=== PATIENT | male | born 1965 | race Two or more races ===

== ENCOUNTER 2020-09-01 08:34 | Outpatient (REF) | payer OTHER, SELFPAY | END 2020-09-01 08:35 | disposition home or self-care (01) | LOC: HO.LAB 08:34 | PROVIDERS: PCP Family Medicine; Visit Provider Internal Medicine | DX: Z20.828 Contact with and (suspected) exposure to other viral communicable diseases (principal) | CPT/HCPCS: C9803; U0003 ==

== ENCOUNTER 2022-06-26 13:38 | Outpatient (REF) | payer SELFPAY ==
[2022-06-26 14:11] LABS: COVID-19 Test Positive (Negative); IDNOW Serial# 16C4AD1C
== END 2022-06-26 13:39 | disposition home or self-care (01) ==
LOC: HO.LAB 13:38
PROVIDERS: Visit Provider Internal Medicine
DX: Z20.822 Contact with and (suspected) exposure to COVID-19 (principal)
CPT/HCPCS: 87635; C9803

== ENCOUNTER 2022-11-28 14:09 | Outpatient (REF) | payer OTHER, SELFPAY ==
--- NOTE | ~2022-11-28 | XR_ITS ---
EXAMINATION: XR SHOULDER, RIGHT CLINICAL INFORMATION: Right shoulder pain, acute COMPARISON: None TECHNIQUE: AP external rotation, Grashey, scapular Y, and axillary views of the right shoulder. FINDINGS: Mild glenohumeral osteoarthritis with small marginal osteophytes and articular cortical irregularity. Acromioclavicular joint appears relatively well-preserved. No fracture or malalignment. Bone mineralization is normal. XR/XR shoulder RT min 2V IMPRESSION: Mild glenohumeral osteoarthritis. No acute osseous findings
== END 2022-11-28 14:10 | disposition home or self-care (01) ==
LOC: HO.XRAY 14:09
PROVIDERS: Absent Provider Internal Medicine; PCP Internal Medicine; Visit Provider Registered Nurse
DX: M25.511 Pain in right shoulder (principal)
CPT/HCPCS: 73030

== ENCOUNTER 2023-03-03 05:21 | Emergency (ER) | payer OTHER, SELFPAY ==
--- NOTE | 2023-03-03 | ECG_ITS ---
Test Reason : CHEST PAIN Blood Pressure : / mmHG Vent. Rate : 077 BPM Atrial Rate : 077 BPM P-R Int : 140 ms QRS Dur : 096 ms QT Int : 400 ms P-R-T Axes : 074 037 000 degrees QTc Int : 452 ms Normal sinus rhythm Hyperacute T waves in precordial leads, ST & T wave abnormality, consider inferior ischemia Abnormal ECG No previous ECGs available Referred By: Generic ED Physician Electronically Signed By:Ankit Yousif
[2023-03-03 05:26] VITALS: BP 126/82; PULSE 82; O2SAT 98
[2023-03-03 05:31] VITALS: BP 115/73; PULSE 77; RESP 19; TEMP 36.6; O2SAT 99; BMI 34.2
--- NOTE | 2023-03-03 05:41 | ECG_ITS ---
Test Reason : CHEST PAIN Blood Pressure : / mmHG Vent. Rate : 084 BPM Atrial Rate : 084 BPM P-R Int : 146 ms QRS Dur : 098 ms QT Int : 394 ms P-R-T Axes : 070 044 010 degrees QTc Int : 465 ms Normal sinus rhythm Hyperacute T waves in anterior leads with lateral and inferior ST depressions - suspect evolving STEMI Abnormal ECG When compared with ECG of 03-MAR-2023 05:24, Lateral ST depressions. Referred By: Jessenia Melo Electronically Signed By:Ankit Yousif
[2023-03-03 05:42] LABS: Hemoglobin 14.8 g/dl (14.0-18.0); Mean Corpuscular HGB Conc 33.6 g/dl (31.0-36.0); Mean Corpuscular Volume 86.1 fL (80.0-98.0); Mean Platelet Volume 9.7 fL (9.4-12.4); Platelet Count 231 X10*3/uL (160-400); Red Blood Count 5.11 X10*6/uL (4.60-5.80); Red Cell Distribution Width 12.6 % (11.0-16.0); White Blood Count 8.6 X10*3/uL (4.8-10.8)
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
--- OUTSIDE RECORDS SUMMARY | 2023-03-03 05:42 | XMS_ITS | Continuity of Care Document ---
Author Name Unknown Organization [facility] Address [address] [place] [address]- Care Team Providers Care Communication Signals Intelligence Name Role Phone Not on Staff, PCP Primary Care Physician Unavail able [place] [facility] [place] - 05/19/22 [facility] [address] [place] [address]- Attending Physician: Lenny Rodriguez DO Referring Physician: Not on Staff, Referring MD Allergies, Adverse Reactions, Alerts No Known Allergies Medications terbinafine 1% topical cream 1 application, Topically, 2 times a day, 1-4 weeks as needed, # 30 Gm, 0 Refills, Acute 06/09/22 23:00:00 EDT, 05/12/22 14:16:00 EDT, Cream, [id number], Partial fill upon patient request if the prescription is for a schedule II opioid drug., 1... Start Date: 05/12/22 Stop Date: 06/09/22 Status: Ordered Vital Signs Most recent to oldest [Reference Range]: 1 Oxygen Saturation [94-100 %] 100 % (05/12/22 1:32 PM) Pulse Rate [55-90 bpm] 71 bpm (05/12/22 1:32 PM) Blood Pressure [90-138/55-84 mm Hg] 139/ 69mm Hg *H* (05/12/22 1:32 PM) Temperature [96.8-100.4 DegF] 98.0 DegF (05/12/22 1:32 PM) Mode of Delivery (Oxygen) Room air (05/12/22 1:32 PM) Blood pressure sites Arm, right (05/12/22 1:32 PM) Temperature Route Temporal (05/12/22 1:32 PM)
--- OUTSIDE RECORDS SUMMARY | 2023-03-03 05:42 | XMS_ITS | Continuity of Care Document ---
Author Name Unknown Organization [facility] Address [address] [place] [address]- Care Team Providers Care Media Services Director Name Role Phone Not on Staff, PCP Primary Care Physician Unavail able Encounter [facility] [place] Date(s): 05/12/22 - 06/11/22 [facility] [address] [place] [address]- Attending Physician: Admtr, Ar8 Admitting Physician: Admtr, Ar8 Referring Physician: Admtr, Ar8 Allergies, Adverse Reactions, Alerts No Known Allergies Care Team Personnel Name: Not on Staff, PCP
[2023-03-03 05:45] VITALS: BP 119/72; PULSE 76; RESP 18; O2SAT 98
[2023-03-03] MEDS: Heparin Sodium,Porcine 5,000 UNIT/ML VIAL 5000 UNIT IVPUSH (05:46)
[2023-03-03] MEDS: Atorvastatin Calcium 80 MG TABLET PO (05:46)
[2023-03-03] MEDS: Ticagrelor 90 MG TABLET 180 MG PO (05:46)
[2023-03-03] MEDS: Morphine Sulfate 2 MG/ML CARTRIDGE IVPUSH (05:49)
[2023-03-03 05:57] LABS: Alanine Aminotransferase 23 U/L (0-40); Alkaline Phosphatase 64 U/L (39-117); Anion Gap 16 (12-20); Aspartate Amino Transferase 22 U/L (5-37); Bilirubin Total 0.5 mg/dL (0.0-1.0); Blood Urea Nitrogen 25 mg/dL (9-16); Calcium 8.9 mg/dL (8.4-10.2); Carbon Dioxide 23 mmol/L (22-29); Chloride 104 mmol/L (96-108); Estimated Glomerular Filt Rate 53; Glucose Random 192 mg/dL (60-115); Potassium 3.7 mmol/L (3.3-5.1); Sodium 139 mmol/L (135-145); Total Protein 6.7 g/dL (6.5-8.0)
--- NOTE | 2023-03-03 05:57 | MHC.EDTECH ---
@[phone] Stemi -Line called per ,awaiting a call back. @[phone] [facility] called for a Stemi-Standby per @2031 received a call back from the [facility]emi[facility],speaking with . @[phone] accepted patient to [facility]'s Digital Controls Technical Officer. @5711 [facility] arrived to transfer patient to Digital Controls Technical Officer at [facility].
--- NOTE | 2023-03-03 06:00 | PC.NURSE ---
Report to [facility] choi. Pt to [facility] phlebotomist medical lab assistant for further care.
--- NOTE | 2023-03-03 06:29 | PC.NURSE ---
Report to Gail DOUGLAS in organic lab worker.
== END 2023-03-03 06:02 | disposition short-term general hospital (02) ==
PROVIDERS: Emergency Provider Emergency Medicine Emergency Medical Services
DX: I21.3 ST elevation (STEMI) myocardial infarction of unspecified site (principal); R06.02 Shortness of breath; E11.9 Type 2 diabetes mellitus without complications; E78.5 Hyperlipidemia, unspecified
CPT/HCPCS: 36415; 80053; 84484; 85027; 93005; 96374; 96375; 99285; J1643; J2270

== ENCOUNTER → 2023-03-06 12:43 | Outpatient (BNVA) | payer OTHER, SELFPAY | PROVIDERS: PCP Internal Medicine; Referring Provider Internal Medicine; Visit Provider Nurse Practitioner Family | DX: I21.3 ST elevation (STEMI) myocardial infarction of unspecified site (principal); I25.5 Ischemic cardiomyopathy; Z98.890 Other specified postprocedural states | CPT/HCPCS: 99212 ==

== ENCOUNTER → 2023-04-10 12:44 | Outpatient (REF) | payer OTHER, SELFPAY ==
--- NOTE | 2023-04-10 12:47 | CA_ITS ---
Transthoracic Echocardiogram Patient (Last, First, Middle): Rodolfo Humphrey, Gender: Male Date of : 1965 Age: 57 Procedure Date: 04/10/2023 Procedure Type: Transthoracic Echocardiogram Location: OP Height: 175.26 cm Weight: 99.79 kg BSA: 2.15 m2 Heart Rate: 64 bpm BP: 110 / 78 mmHg Laundry Machine Mechanic: SB Referring MD: Angelika Renteria LIME SLUDGE KILN OPERATOR-C Symptoms: I21.3 - ST elevation (STEMI) myocardial infarction of unspecified site Study Quality: Adequate ECG Rhythm: Sinus Conclusions: - The left ventricular systolic function is low normal. The visually estimated ejection fraction is between 50-55%. - The basal anteroseptal and mid anteroseptal segments are hypokinetic. Findings Left Ventricle Normal left ventricular cavity size. The left ventricular systolic function is low normal. The visually estimated ejection fraction is between 50-55%. LV peak GLS -13.6%. Wall Motion Rest Echo Findings The basal anteroseptal and mid anteroseptal segments are hypokinetic. Prior Study Comparison Changes noted compared to prior study. (compared to [facility] [place]04/[place]23, improved LVEF, wall motion abnormalities). Measurements 2D Linear Measurements IVSd: 1.09 0.6-0.9/0.6-1.0 cm LVIDd: 5.08 3.9-5.3/4.2-5.9 cm LVIDd Index: 2.36 2.4-3.2/2.2-3.1 cm/m2 LVIDs: 3.65 2.0-3.6 cm LVPWd: 0.73 0.7-1.1 cm LV Mass: 205.16 67-162/88-224 g LV Mass Index: 95.42 43-95/49-115 g/m2 2D Systolic Function EF 4C: 60.10 >55% EF 2C: 54.80 >55% EF BiP: 58.00 >55% Updated in Other Vendor System with Status of Final Onesimo Melvin MD electronically signed on 04/11/2023 10:04:26 AM with status of Final
== END ==
LOC: HO.CARD 12:44
PROVIDERS: PCP Internal Medicine; Visit Provider Nurse Practitioner Family
DX: I21.3 ST elevation (STEMI) myocardial infarction of unspecified site (principal); I25.5 Ischemic cardiomyopathy
CPT/HCPCS: 93308; 93356

== ENCOUNTER → 2023-04-18 11:04 | Outpatient (BNVA) | payer OTHER, SELFPAY | PROVIDERS: Visit Provider Internal Medicine Cardiovascular Disease | DX: I25.5 Ischemic cardiomyopathy (principal); I20.8 Other forms of angina pectoris | CPT/HCPCS: 99212 ==

== ENCOUNTER 2023-05-07 08:00 | Outpatient (REF) | payer OTHER, SELFPAY ==
[2023-05-07 08:57] LABS: Alanine Aminotransferase 39 U/L (0-40); Alkaline Phosphatase 77 U/L (39-117); Anion Gap 10 (12-20); Aspartate Amino Transferase 27 U/L (5-37); Bilirubin Total 0.5 mg/dL (0.0-1.0); Blood Urea Nitrogen 20 mg/dL (9-16); Carbon Dioxide 27 mmol/L (22-29); Chloride 109 mmol/L (96-108); Cholesterol 88 mg/dL; Estimated Glomerular Filt Rate > 60; Glucose Random 122 mg/dL (60-115); HDL Cholesterol 30 mg/dL; LDL Cholesterol Calculated 49 mg/dl; Potassium 4.6 mmol/L (3.3-5.1); Sodium 141 mmol/L (135-145); Triglycerides 49 mg/dL
== END 2023-05-07 08:01 | disposition home or self-care (01) ==
LOC: HO.LAB 08:00
PROVIDERS: PCP Internal Medicine; Visit Provider Nurse Practitioner Primary Care
DX: I25.10 Atherosclerotic heart disease of native coronary artery without angina pectoris (principal)
CPT/HCPCS: 36415; 80053; 80061

== ENCOUNTER 2023-06-21 15:42 | Outpatient (REF) | payer OTHER, SELFPAY ==
--- NOTE | ~2023-06-21 | XR_ITS ---
EXAMINATION: XR LUMBOSACRAL SPINE CLINICAL INFORMATION: Low back pain and sciatica COMPARISON: None available. TECHNIQUE: Three views of the lumbosacral spine. FINDINGS: There is mild facet degenerative change L5-S1. Mild anterior spurring noted in the lower thoracic spine and upper lumbar spine. There is no fracture or destructive lesion. Sclerosis overlies the inferior left SI joint. There is minor atherosclerotic calcification in the distal abdominal aorta. XR/XR lumbar spine 2-3V IMPRESSION: Degenerative changes noted. No fracture.
== END 2023-06-21 15:43 | disposition home or self-care (01) ==
LOC: HO.HHCX 15:42
PROVIDERS: Visit Provider Family Medicine
DX: M54.42 Lumbago with sciatica, left side (principal); M54.41 Lumbago with sciatica, right side
CPT/HCPCS: 72100

== ENCOUNTER 2023-09-14 14:18 | Outpatient (AMB) | payer OTHER, SELFPAY ==
[2023-09-14 14:20] VITALS: BP 130/70; PULSE 98; BMI 33.2
--- NOTE | 2023-09-14 14:20 | MHC.OFFVIS ---
Intake Vital Signs 09/14/23 14:20 Height 5 ft 9 in Weight 224 lb 13.944 oz BMI 33.2 BP 130/70 Blood Pressure Location Lt brachial Position Sitting Pulse 98 Pulse Source Pulse Oximeter Intake Visit Reasons: 4 month f/u Intake Note: 4 month f/u patient feels fine. Explosive Ordnance Handler Required: Yes Explosive Ordnance Handler Name: Said flavio/tyler Accompanied by: Self / Same As Patient Allergies No Known Allergies Allergy (Verified 09/14/23 14:22) Medication List - Last Reconciled 09/14/23 by Nivia Bonilla NP aspirin (Adult Low Dose Aspirin) 81 mg PO DAILY atorvastatin 80 mg PO DAILY carvedilol 3.125 mg PO BID gabapentin 1 tab AM, 2 tab PM lisinopril 5 mg PO DAILY metformin ER 500 mg PO DAILY nitroglycerin mg sublingual ticagrelor (Brilinta) 90 mg PO BID HPI HPI Comments History of Present Illness Details 57-year-old male presents for a follow-up. He reports he has been doing well and tolerating medications well. He denies chest pain, shortness of breath, hematuria, or hematochezia. He reports he does get bruising with the blood thinner. He tolerates working as a [employer] employee without difficulties. [facility] Surgical History History of cardiac cath Family History Mother No problems noted. Father No problems noted. Social History Alcohol intake: never Patient Tobacco Use Status: Never used Tobacco Review of Systems Const Denies chills, Denies fatigue, Denies fever(s), Denies frequent falls, Denies weakness, Denies weight gain and Denies weight loss ENT Denies dizziness Card Denies chest pain, Denies leg edema, Denies lightheadedness, Denies palpitations, Denies dyspnea and Denies dyspnea on exertion Resp Denies cough, Denies dyspnea and Denies dyspnea on exertion GI Denies hematochezia Musc Denies abnormal gait, Denies muscle weakness, Denies numbness, Denies radiating pain into limb and Denies tingling Neuro Denies abnormal gait, Denies dizziness, Denies frequent falls, Denies numbness, Denies tingling and Denies weakness Endo Denies fatigue and Denies palpitations Physical Exam Vital Signs: Last Vital Signs Pulse 98 09/14/23 14:20 BP 130/70 09/14/23 14:20 BMI result Body Mass Index 33.2 Const General: healthy appearing and no acute distress Orientation/consciousness: patient oriented x3 HEENT Head: Yes normal to inspection Eyes General: appearance normal, both eyes and all related structures Neck Neck: Yes normal visual inspection Chest Chest palpation & inspection: normal inspection of the chest Resp Effort & Inspection: normal respiratory effort Auscultation: clear to auscultation bilaterally Cardio Jugular venous distension: no JVD Palpation: normal PMI Rate: regular rate Rhythm: regular rhythm Heart sounds: S1 normal heart sound present, S2 normal heart sound present, no click, no gallops, no murmurs and no rubs GI Inspection: Yes normal to inspection Palpation (GI): Soft to palpation Skin General skin exam: no rashes or lesions noted Neuro General: patient oriented x3 Extrem General: Yes normal to inspection Psych Appearance: grossly normal Assessment & Plan Assessment & Plan (1) History of cardiac cath: Comment: 03/03/2023 proximal LAD 95% stenosis, DELL placed, culprit lesion, 1st OM 30% stenosis, RCA minimal luminal irregularities Code(s): Z98.890 - Other specified postprocedural states Plan Discussed in detail the importance of continuing medications. Report any new symptoms. Will have him return to see Dr. Yousif in 3-4 months. Sooner if needed. Coding Level of Care Code Est Pt Level 3 (18528) Diagnoses History of cardiac cath Z98.890
== END 2023-09-14 14:47 | disposition home or self-care (01) ==
PROVIDERS: PCP Internal Medicine; Visit Provider Nurse Practitioner
DX: Z98.890 Other specified postprocedural states (principal)
CPT/HCPCS: 99213

== ENCOUNTER → 2023-09-14 14:18 | Outpatient (BNVA) | payer OTHER, SELFPAY | PROVIDERS: PCP Internal Medicine; Visit Provider Nurse Practitioner | DX: Z98.890 Other specified postprocedural states (principal) | CPT/HCPCS: 99212 ==

== ENCOUNTER 2024-04-26 09:48 | Outpatient (REF) | payer OTHER, SELFPAY ==
[2024-04-26 10:02] LABS: MANUAL DIFF FLAG NO
[2024-04-26 12:02] LABS: Basophils Absolute Auto 0.1 X10*3/uL (0.0-0.2); Basophils Percent Auto 0.9 % (0-2); Eosinophils Absolute Auto 0.1 X10*3/uL (0.0-0.4); Eosinophils Percent Auto 2.1 % (0-4); Hematocrit 46.1 % (42.0-52.0); Hemoglobin 15.1 g/dl (14.0-18.0); Imm Gran Abs Auto 0.02 X10*3/uL (0.00-0.03); Imm Gran Pct Auto 0.3 % (0.0-0.4); Lymphocytes Absolute Auto 1.4 X10*3/uL (1.2-4.9); Lymphocytes Percent Auto 23.7 % (20-40); Mean Corpuscular HGB Conc 32.8 g/dl (31.0-36.0); Mean Corpuscular Hemoglobin 29.4 pg (27.0-33.0); Mean Corpuscular Volume 89.9 fL (80.0-98.0); Mean Platelet Volume 10.9 fL (9.4-12.4); Monocytes Absolute Auto 0.6 X10*3/uL (0.1-1.2); Monocytes Percent Auto 10.7 % (2-11); Neutrophils Absolute Auto 3.6 x10*3/uL (2.0-8.3); Neutrophils Percent Auto 62.3 % (45-73); Platelet Count 207 X10*3/uL (160-400); Red Blood Count 5.13 X10*6/uL (4.60-5.80); Red Cell Distribution Width 12.9 % (11.0-16.0); White Blood Count 5.8 X10*3/uL (4.8-10.8)
[2024-04-26 12:43] LABS: Alanine Aminotransferase 24 U/L (0-40); Alkaline Phosphatase 65 U/L (39-117); Anion Gap 12 (12-20); Aspartate Amino Transferase 24 U/L (5-37); Bilirubin Total 0.6 mg/dL (0.0-1.0); Blood Urea Nitrogen 18 mg/dL (9-16); Calcium 8.9 mg/dL (8.4-10.2); Carbon Dioxide 29 mmol/L (22-29); Chloride 105 mmol/L (96-108); Cholesterol 98 mg/dL (<200); Estimated Glomerular Filt Rate > 60; Glucose Random 101 mg/dL (60-115); HDL Cholesterol 34 mg/dL (>40); LDL Cholesterol Calculated 56 mg/dL (<100); Potassium 4.6 mmol/L (3.3-5.1); Sodium 141 mmol/L (135-145); Total Protein 6.9 g/dL (6.5-8.0); Triglycerides 42 mg/dL (<150)
[2024-04-26 13:08] LABS: Creatinine Urine 110.97 mg/dL; Microalbumin Urine < 5.0 mg/L
[2024-04-26 13:12] LABS: Folate 11.2 ng/mL (> or = 4.0); Vitamin B12 935 pg/mL (200-900)
[2024-04-28 18:17] LABS: RPR Rapid Plasma Reagin NON-REACTIVE (NON-REACTIVE)
== END 2024-04-26 09:49 | disposition home or self-care (01) ==
LOC: HO.LAB 09:48
PROVIDERS: Visit Provider Family Medicine
DX: R20.0 Anesthesia of skin (principal); E11.9 Type 2 diabetes mellitus without complications
CPT/HCPCS: 36415; 80053; 80061; 82043; 82570; 82607; 82746; 84443; 85025; 86592

== ENCOUNTER 2024-08-06 13:17 | Outpatient (REF) | payer OTHER, SELFPAY ==
--- NOTE | 2024-08-06 13:21 | EMG_ITS ---
Chief complaint: 2 months of burning sensation both legs, ankle pain, left worse than right; history of diabetes. Reason for referral: Evaluate for neuropathy Referred by: Lucille Boss NP Procedure done: Bilateral lower extremity NCS/EMG Precautions and/or limitations: None The limb temperature was monitored continuously and remained between 32-36 degrees C during the performance of the NCS. Nerve Conduction Studies Anti Sensory Summary Table ?Stim Site NR Onset (ms) Norm Onset (ms) Peak (ms) Norm Peak (ms) O-P Amp (?V) Norm O-P Amp Site1 Site2 Delta-0 (ms) Dist (cm) Kana (m/s) Norm Kana (m/s) Left Sural Anti Sensory (Lat Mall) Calf ? 2.4 3.3 <4.0 11.4 >5.0 Calf Lat Mall 2.4 14.0 58 Right Sural Anti Sensory (Lat Mall) Calf ? 2.3 3.2 <4.0 3.9 >5.0 Calf Lat Mall 2.3 14.0 61 Motor Summary Table ?Stim Site NR Onset (ms) Norm Onset (ms) O-P Amp (mV) Norm O-P Amp iAmp (mV) Amp (1st) (%) Site1 Site2 Delta-0 (ms) Dist (cm) Kana (m/s) Norm Kana (m/s) Right Peroneal Motor (Ext Dig Brev) Ankle ? 4.6 <4.0 3.9 >2.5 4.9 100.0 Ankle Ext Dig Brev 4.6 0.0 B Fib ? 12.9 3.8 4.5 97.4 B Fib Ankle 8.3 32.5 39 >40 Poplt ? 13.9 4.4 5.2 112.8 Poplt B Fib 1.0 6.0 60 >40 Left Tibial Motor (Abd Nash Brev) Ankle ? 4.1 <5 4.2 >2.5 6.1 100.0 Ankle Abd Nash Brev 4.1 0.0 Knee ? 12.7 2.7 2.8 64.3 Knee Ankle 8.6 39.0 45 >40 Right Tibial Motor (Abd Nash Brev) Ankle ? 4.1 <5 9.9 >2.5 12.4 100.0 Ankle Abd Nsah Brev 4.1 0.0 Knee ? 13.5 6.3 7.5 63.6 Knee Ankle 9.4 42.0 45 >40 EMG ?Side Muscle Nerve Root Ins Act Fibs Psw Amp Dur Poly Recrt Int Pat Comment Right AbdHallucis MedPlantar S1-2 Nml Nml Nml Nml Nml 0 Nml Complete Right AntTibialis Dp Br Peron L4-5 Nml Nml Nml Nml Nml 0 Nml Complete Right PostTibialis Tibial L5, S1 Nml Nml Nml Nml Nml 0 Nml Complete Right MedGastroc Tibial S1-2 Nml Nml Nml Nml Nml 0 Nml Complete Right VastusMed Femoral L2-4 Nml Nml Nml Nml Nml 0 Nml Complete Left AbdHallucis MedPlantar S1-2 Nml Nml Nml Nml Nml 0 Nml Complete Left AntTibialis Dp Br Peron L4-5 Nml Nml Nml Nml Nml 0 Nml Complete Left PostTibialis Tibial L5, S1 Nml Nml Nml Nml Nml 0 Nml Complete Left MedGastroc Tibial S1-2 Nml Nml Nml Nml Nml 0 Nml Complete Left VastusMed Femoral L2-4 Nml Nml Nml Nml Nml 0 Nml Complete Paraspinal EMG ?Side Muscle Nerve Root Ins Act Fibs Psw Comment Right Lumbar Upper Rami Nml Nml Nml Right Lumbar Mid Rami Nml Nml Nml Right Lumbar Lower Rami Nml Nml Nml Left Lumbar Upper Rami Nml Nml Nml Left Lumbar Mid Rami Nml Nml Nml Left Lumbar Lower Rami Nml Nml Nml FINDINGS: Right peroneal nerve showed prolonged distal latency, normal amplitude and slow conduction velocity distally. Left tibial nerve within normal, but question temporal dispersion? Right sural nerve showed normal peak latencies but small amplitude. All other nerves tested were within normal. Concentric needle EMG was performed in selected muscles of the bilateral lower extremity and lumbar paraspinals. Study did not reveal signs of electric abnormalities as shown in the table above. IMPRESSION: 1. This is an abnormal study. 2. There is electrodiagnostic findings suggestive of beginning peripheral neuropathy. 3. There is no electrodiagnostic evidence for lumbosacral plexopathy or lumbar radiculopathy. CLINICAL COMMENT: Possible beginning peripheral neuropathy. Please refer back for repeat NCS/EMG in 6 months to confirm/clarify. Thank you for your kind referral. Shelley Baez MD, ABILIO Board Certified, [place] Board of Physical Medicine and Rehabilitation (ABPMR) Board Certified, [place] Board of Electrodiagnostic Medicine (ABEM) CODIN [id number] x 2 MTDD
== END 2024-08-06 13:18 | disposition home or self-care (01) ==
LOC: HO.NEURO 13:17
PROVIDERS: PCP Internal Medicine; Visit Provider Nurse Practitioner Primary Care
DX: R20.2 Paresthesia of skin (principal)
CPT/HCPCS: 95886; 95909

== ENCOUNTER → 2024-08-06 13:21 | Outpatient (BNV) | payer OTHER, SELFPAY | PROVIDERS: PCP Internal Medicine; Visit Provider Physical Medicine & Rehabilitation | DX: E11.42 Type 2 diabetes mellitus with diabetic polyneuropathy (principal) | CPT/HCPCS: 95886; 95909 ==

== ENCOUNTER 2024-12-08 09:49 | Outpatient (AMB) | payer OTHER, SELFPAY ==
--- NOTE | 2024-12-08 09:52 | A.OFFVIS_ITS ---
Vital Signs 12/08/24 10:00 Height 5 ft 8 in Weight 256 lb BMI 38.9 BP 129/62 Blood Pressure Location Rt brachial Position Sitting Pulse 75 Intake Visit Reasons: umbilical hernia Intake Note: Patient referred by Lucille BOWEN for Umbilical hernia. Present for 2M. Patient c/o: pain when pressed on. Side Laster Staple Required: No Accompanied by: Self / Same As Patient Allergies No Known Allergies Allergy (Verified 12/08/24 09:58) HPI Comments Details: Patient presents with a several month history of the symptomatic enlarging umbilical hernia. He would like to have this repaired. He otherwise tolerating a diet. He has regular bowel habits. 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 Chart was reviewed and patient evaluated cardiac history in the past. Status post cardiac catheterization in the past. [facility] Surgical History History of cardiac cath Family History Mother No problems noted. Father No problems noted. Social History Alcohol intake: never Patient Tobacco Use Status: Never used Tobacco Physical Exam Vital Signs: Last Vital Signs Pulse 75 12/08/24 10:00 BP 129/62 12/08/24 10:00 BMI result Body Mass Index 38.9 Chest Other: Chest breath sounds bilaterally, HS 1 in 2 GI Other: Patient was examined both supine and standing with Valsalva. Bilateral groin exam negative. Genitalia within normal limits. Abdomen corpulent, soft. Patient was a roughly 3 cm irreducible umbilical hernia Assessment & Plan Assessment & Plan (1) Incarcerated umbilical hernia: Code(s): K42.0 - Umbilical hernia with obstruction, without gangrene Category: Surgical Plan Risks, benefits, alternatives of open umbilical hernia repair with mesh were reviewed with the patient and included but not limited to bleeding, infection, recurrence, numbness, pain, scarring, bowel injury and the patient wished to proceed. All questions answered. Arrangements were made for this on a day which is convenient for him. Patient will also need to have his Brilinta addressed prior to surgery. Coding Level of Care Code New Pt Level 5 (70511) Diagnoses Incarcerated umbilical hernia K42.0
[2024-12-08 10:00] VITALS: BP 129/62; PULSE 75; BMI 38.9
--- OUTSIDE RECORDS SUMMARY | 2024-12-08 10:45 | XMS_ITS | Encounter Summary ---
Author Organization [employer] Address [address] [facility] [address] [place] [address] Care Team Providers Care Credentialing Analyst Name Role Phone Lucille Boss Primary Care Provider [phone] Sae Renterian Unavailable Reason for Visit * Reason Onset Date Comments Results 12/11/2022 Encounter Details Date Type Department Care Team ([facility] Contact Info) Description 12/11/2022 Telephone [facility] [address] [place] [address] Lucille Boss ANP [address] [place] [address] Results Social History Tobacco Use Types Packs/Day Years Used Date Smoking Tobacco: Never Assessed Depression Answer Date Recorded Patient Health Questionnaire-2 Score 0 11/28/2022 Sex and Gender Information Value Date Recorded Sex Assigned at Male 08/14/2022 10:15 AM EDT Legal Sex Male 10:15 AM EDT Gender Identity Choose not to disclose 10:15 AM EDT Sexual Orientation Choose not to disclose 2021 10:15 AM EDT COVID-19 Exposure Response Date Recorded In the last 10 days, have yo u been in contact with someone who was confirmed or suspected to have Coronavirus/COVID-19? No / Unsure 11/28/2022 12:56 PM EST documented as of this encounter Miscellaneous Notes * Telephone Encounter - Antonette Regan RN - 12/11/2022 3:45 PM EST XR ordered 11/28 by OTTONIEL Hobbs. No results yet available. * Telephone Encounter - Shirin Henry - 12/11/2022 2:55 PM EST Tc from pt requesting results from X-ray that were done for Acute pain of right shoulder. Please contact pt at [phone] documented in this encounter Plan of Treatment Not on file documented as of this encounter Visit Diagnoses Not on filedocumented in this encounter Care Teams Credentialing Analyst Relationship Specialty Start Date End Date Lucille Boss ANP [address] [place] [id number] PCP - General Family Medicine 11/27/22 Angelika Renteria [address] [place] [address] [address] [place] [address] Cardiology 10/07/24 ao Gastroenterology 09/29/24 10/06/24 documented as of this encounter
--- OUTSIDE RECORDS SUMMARY | 2024-12-08 10:45 | XMS_ITS | Encounter Summary ---
Author Organization [employer] Address [address] 7[address] [place] [address] Care Team Providers Care Farm Butcher Name Role Phone Lucille Boss Primary Care Provider [phone] Angelika Renteria Unavailable Reason for Visit * Reason Comments Med Refill Encounter Details Date Type Department Care Team ([facility] Contact Info) Description 07/01/2023 Refill [facility] [address] [place] [address] Taryn Gleason MD [address] [place], [place] [id number] Social History Tobacco Use Types Packs/Day Years Used Date Smoking Tobacco: Never Passive Smoke Exposure: Never Smokeless Tobacco: Never Alcohol Use Standard Drinks/Week Comments Not Currently 0 (1 standard drink = 0.6 oz pur e alcohol) Depression Answer Date Recorded Patient Health Questionnaire-2 Score 0 11/28/2022 Sex and Gender Information Value Date Recorded Sex Assigned at Male 08/14/2022 10:15 AM EDT Legal Sex Male 10:15 AM EDT Gender Identity Choose not to disclose 10:15 AM EDT Sexual Orientation Choose not to disclose 2021 10:15 AM EDT documented as of this encounter Plan of Treatment Not on file documented as of this encounter Visit Diagnoses Not on filedocumented in this encounter Care Teams Farm Butcher Relationship Specialty Start Date End Date Lucille Boss ANP [address] [place] [address] PCP - General Family Medicine 11/27/22 Angelika Renteria [address]rd [place] [address] Cardiology 10/07/24 ao Gastroenterology 09/29/24 10/06/24 documented as of this encounter
--- OUTSIDE RECORDS SUMMARY | 2024-12-08 10:45 | XMS_ITS | Clinical Summary ---
Author Organization [employer] Address [address] 7[address] [place] [address] Care Team Providers Care Farmworker Poultry Name Role Phone Lucille Boss MIN Primary Care Provider [phone] Angelika Renteria Unavailable Allergies No known active allergies Medications nitroglycerin (Nitrostat) 0.[address] 1 TABLET UNDER TONGUE EVERY 5 MIN NEEDED FOR CHEST PAIN, MAX OF 3 DOSES/15 MIN CALL 911/SEEK MEDICAL ATTENTION IF PAIN PERSISTS 90 tablet 023 Active Additional Information Patient not taking.Reported on 03/06/2024 carvedilol (Coreg) 3.125 MG tablet TAKE 1 TABLET BY MOUTH TWICE A DAY 180 tablet 1 024 Active atorvastatin (Lipitor) 80 MG tablet TAKE 1 TABLET BY MOUTH AT BEDTIME 90 tablet 1 024 Active lisinopril 5 MG tablet TAKE 1 TABLET BY MOUTH EVERY MORNING 90 tablet 1 024 Active Acetaminophen Extra Strength 500 MG tabletIndications :Numbness of both lower extremities TAKE 2 TABLETS (1,000 MG) BY MOUTH IF NEEDED IN THE MORNING AND AT BEDTIME FOR MILD PAIN. 30 tablet 1 024 Active aspirin (Aspirin Low Dose) 81 MG EC tablet TAKE 1 TABLET BY MOUTH EVERY DAY 90 tablet 1 024 Active doxylamine ([employer] Sleep-Aid, Doxylamine,) 25 MG tabletIndications :Insomnia, unspecified type TAKE 1/2-1 TABLET BY MOUTH AT BEDTIME IF NEEDED FOR INSOMNIA 30 tablet 1 024 Active metFORMIN XR (Glucophage-XR) 500 MG 24 hr tablet TAKE 1 TABLET BY MOUTH EVERY MORNING 90 tablet 1 025 Active metroNIDAZOLE (Metrogel) 0.75 % gelIndications:Ro sacea Apply a thin film to face twice daily, morning and evening, to entire affected areas after washing. 45 g 2 025 Active ticagrelor (Brilinta) 90 MG tabletIndications :Coronary artery disease involving [place] heart without angina pectoris, unspecified vessel or lesion type TAKE 1 TABLET BY MOUTH TWICE DAILY 180 tablet 1 025 Active empagliflozin (Jardiance) 10 MGIndications:Typ e 2 diabetes mellitus with hyperlipidemia (CMS/HCC) (CMS/[facility]) Take 1 tablet (10 mg) by mouth Once per day. 90 tablet 3 025 2025 Active lidocaine (Lidoderm) 5 % patchIndications: Acute left-sided low back pain without sciatica Apply 1 patch topically in the morning. Remove & discard patch within 12 hours or as directed by MD. 15 patch 2 024 2024 Discontinued(T herapy completed) ticagrelor (Brilinta) 90 MG tablet TAKE 1 TABLET BY MOUTH TWICE DAILY 180 tablet 1 024 2024 Discontinued(R eorder (will not trigger notification to Pharmacy)) dapagliflozin (Farxiga) 5 MGIndications:Typ e 2 diabetes mellitus with hyperlipidemia (CMS/HCC) ([facility]) Take 1 tablet (5 mg) by mouth Once per day. 90 tablet 024 2024 Discontinued(F ormulary change) Active Problems Problem Noted Date Diagnosed Date ST elevation myocardial infa rction involving left anterior descending (LAD) coronary artery 05/04/2023 Overview (11/21/2024): With drug-eluting stent placed 03/03/2023 [place] [facility] [place] Class 2 obesity 04/04/2023 Type 2 diabetes mellitus with hyperlipidemia (CM S/HCC) 03/09/2023 Overview (11/21/2024): Lab Results Component Value Date HGBA1C 6.6 (A) 11/21/2024 HGBA1C 6.3 (A) 03/06/2024 HGBA1C 6.3 (A) 12/12/2023 A1c at goal </= 7.0 On statin, ASA, ACEi Eye care referred 11/2023 Foot exam 06/2024 Declined IZ today, cont to rec PCV20, COVID Switched Farxiga to Jardiance due to drug formulary change November 2024 Continue metformin XR 500mg 1 tablet in AM Assessment & Plan (03/09/2023 12:04 PM EDT): Last hb1AC 12/2022 Was 6.6 -continue metformin -will add today farxiga 5 mg daily -pt denies carlos hxof recurrent UTIs nor yeast infection,explained possible SE -pt will benefit for DM,weight loss and cardiac protection with current low EF -pt has apt w PCP -scheduled Today x next month -aprox 4 weeks to have DM labs including fasting lipids ,chem ,CBC CAD (coronary artery disease) 03/09/2023 Overview (11/21/2024): History of STEMI, status post drug-eluting stent placed 03/03/2023 03/03/2023 proximal LAD 95% stenosis, DELL placed, culprit lesion, 1st OM 30% stenosis, RCA minimal luminal irregularities Assessment & Plan (03/09/2023 12:02 PM EDT): Pt w recent MS - LAD 95% stenosis and 30 % stenosis of Lcx ,Had #1 DELL in LAD. -echo showed severe wall akinesis and EF 25-30% -continue current Carvedilol,Lisinopril,SL nitrog,prn,brillinta,ASA, atorvastatin to 80 mg daily. -pt has apt scheduled already w cards -per pharmacy x 03/2023 and per pt in 04/2023 --Advised pt to call twisting frame operator 'office to confirm date of apt -refilled all meds x now -explained importance of taking all these meds and to monitor for bleeding -per pt also was referred for cardiac rehab from hospital-pt to check at hospital x apt Other hyperlipidemia 03/09/2023 Umbilical hernia 03/09/2023 Assessment & Plan (03/09/2023 12:00 PM EDT): Pt w mod size umbilical hernia -asymptomatic ,easily to reduce -advised to discuss w PCP at future for surgical referral but hold x now w recent MS -alarm signs and symptoms discussed Ischemic cardiomyopathy 03/09/2023 Assessment & Plan (03/09/2023 12:06 PM EDT): Pt w recent MS - LAD 95% stenosis and 30 % stenosis of Lcx ,Had #1 DELL in LAD. -echo showed severe wall akinesis and EF 25-30% -continue care w his cards -continue meds -start farxiga today -offered today covid 19 bivalent but refused Class 1 obesity due to exces s calories with serious comorbidity and body mass index (BMI) of 34.0 to 34.9 in adult 03/09/2023 Assessment & Plan (03/09/2023 12:08 PM EDT): Advised pt to improve diet and exercise,discussed healthy life style -discussed pediatric physical therapy assistant referral --referred today Paresthesia of both feet 01/12/2023 Assessment & Plan (01/18/2023 1:08 PM EDT): He is complaining of paresthesia of both feet. He had some loss of sensation in both of his feet. I started him on a trial of gabapentin to see if that helps him F/up with PCP within 1 month. Acute pain of right shoulder 01/12/2023 Assessment & Plan (01/12/2023 1:04 PM EDT): Discussed shoulder xrays with patient. I explained that he can use NSAIDS (Egfr 08/04/22 = 72), I can refer him to ortho for injections or PT. He said he is feeling better and will manage on his own for now. He is aware that he can make an appointment if his pain worsens. F/up: PRN Encounters Date Type Department Care Team Description 11/21/2024 2:30 PM EST Office Visit [facility] [address] [place] [address] Lucille Boss, MIN Rosacea (Primary Dx); Type 2 diabetes mellitus with hyperlipidemia (CMS/HCC) (CMS/HCC); Umbilical hernia without obstruction and without gangrene; Paresthesia of both feet; Coronary artery disease involving [place] heart without angina pectoris, unspecified vessel or lesion type; ST elevation myocardial infarction involving left anterior descending (LAD) coronary artery ([facility]) 11/21/2024 Telephone [facility] [place] [address] Mavis Beltrán RN Medication Question 11/21/2024 Travel 11/20/2024 Telephone [facility] [place] [place] [address] Beulah Emanuel [place] chart prep 11/10/2024 Patient Outreach [facility] [address] [place] [address] Lucille Boss ANP Pre-visit Planning (SDOH screening negative and Tobacco screening negative) 10/30/2024 Refill [facility] [place] [address] Lucille Boss ANP 10/07/2024 Orders Only [facility] [place] [address] Lucille Boss ANP 10/07/2024 Refill [facility] [place] [address] Lucille Boss ANP Insomnia, unspecified type 09/30/2024 Refill [facility] [place] [address] Lucille Boss ANP 09/28/2024 Refill [facility] [place] [address] Lucille Boss ANP from Last 3 Months Immunizations Name Administration Dates Next Due Pneumococcal Polysaccharide PPSV23 12/13/2018 Tdap 08/04/2022,12/13/2018 Social History Tobacco Use Types Packs/Day Years Used Date Smoking Tobacco: Never Passive Smoke Exposure: Never Smokeless Tobacco: Never Tobacco Cessation:Counseling Given: Not Answered Alcohol Use Standard Drinks/Week Comments Not Currently 0 (1 standard drink = 0.6 oz pur e alcohol) Depression Answer Date Recorded Patient Health Questionnaire-9 Score 5 03/06/2024 Patient Health Questionnaire-9 Score 5 03/06/2024 Last PHQ-9: Questionnaire Data Not on file 0 03/06/2024 Housing Stability Answer Date Recorded What is your housing situation today? I have stoney herrera 07/30/[address] you li ve. Do you have problems with any of the following? None of the above 07/30/2023 Food Insecurity Answer Date Recorded Within the past 12 months, y ou worried that your food would run out before you got money to buy more: Never True 07/30/2023 Within the past 12 months,th e food you bought just didn't last and you didn't have enough money to get more: Never True Transportation Answer Date Recorded In the past 12 months, has l ack of transportation kept you from medical appts, meetings, work or from getting things needed for daily living? No 07/30/2023 Utilities Answer Date Recorded In the past 12 months, has t he electric, gas, oil or water company threatened to shut off services in your home? No 07/30/2023 Depression Answer Date Recorded Patient Health Questionnaire-2 Score 1 03/06/2024 Internet Access Answer Date Recorded Internet Access Q1 Yes 07/02/2024 Internet Access Q2 Not on file 07/02/2024 Sex and Gender Information Value Date Recorded Sex Assigned at Male 08/14/2022 10:15 AM EDT Legal Sex Male 10:15 AM EDT Gender Identity Choose not to disclose 10:15 AM EDT Sexual Orientation Choose not to disclose 2021 10:15 AM EDT Last Filed Vital Signs Vital Sign Reading Time Taken Comments Blood Pressure 125/74 11/21/2024 2:38 PM EST Pulse 75 11/21/2024 2:38 PM EST Temperature 36.7 ??C (98 ??F) 11/21/2024 2:38 PM EST Respiratory Rate 14 11/21/2024 2:38 PM EST Oxygen Saturation 98% 11/21/2024 2:38 PM EST Inhaled Oxygen Concentration - - Weight 109 kg (240 lb 6.4 oz) 11/21/2024 2:38 PM EST Height 172.7 cm (5' 8 ) 07/09/2024 3:19 PM EDT Body Mass Index 36.55 07/09/2024 3:19 PM EDT Plan of Treatment Health Maintenance Due Date Last Done Comments CT Colonography 1965 Colonoscopy 1965 Colorectal Cancer Screening 1965 Dental Oral Exam 1965 Dental Prophylaxis 1965 Dental X-Ray: Bitewings 1965 Dental X-Ray: Full Mouth 1965 FIT DNA/Cologuard 1965 FIT 1965 FOBT 1965 Sigmoidoscopy 1965 Eye Exam 1975 Hepatitis B Vaccines (1 of 3 - 19+ 3-dose series) 1984 Zoster Vaccines (1 of 2) 2015 Pneumococcal Vaccine: 50+ Years (2 of 2 - PCV) 12/14/2019 12/13/2018 COVID-19 Vaccine ( - 2023- season) 2024 Influenza Vaccine (#1) 2024 Diabetes: Hemoglobin A1C 02/18/2025 025, 03/06/2024, 12/12/2023, Additional history exists Depression Screening 03/06/2025 03/06/2024, 03/06/20 24 Diabetes: Urine Protein Screening 04/26/2025 04/26/2024, 08/04/2022 Lipid Panel 04/26/2025 04/26/2024, 04/15, 08/04/2022 Diabetes: Foot Exam 07/09/2025 07/09/2024 SDOH Screening 11/10/2025 11/10/2024 Alcohol/Substance Use Screening 11/21/2025 11/21/2024 Tobacco Screening 11/21/2025 11/21/2024 DTaP/Tdap/Td Vaccines (3 - Td or Tdap) 08/04/2032 08/04/2022, 12/13/2018 RSV Patients and Patients Aged 60 years or older (1 - 1-dose 75+ series) 2040 HIV Screening Completed 08/04/2022 Hepatitis C Screening Completed 08/04/2022 HIB Vaccines Aged Out No longer eligi ble based on patient's age to complete this topic HPV Vaccines Aged Out No longer eligi ble based on patient's age to complete this topic Hepatitis A Vaccines Aged Out No long er eligible based on patient's age to complete this topic IPV Vaccines Aged Out No longer eligi ble based on patient's age to complete this topic Meningococcal Vaccine Aged Out No flory jonathan eligible based on patient's age to complete this topic RSV under 20 months Aged Out No longe r eligible based on patient's age to complete this topic Rotavirus Vaccines Aged Out No longer eligible based on patient's age to complete this topic Procedures Procedure Name Priority Date/Time Associated Diagnosis Comments POCT GLYCATED HEMOGLOBIN, TOTAL Routine 11/21/2024 2:40 PM EST Type 2 diabetes mellitus with hyperlipidemia (CMS/HCC) (CMS/HCC) POCT GLUCOSE Routine 11/21/2024 2:39 PM EST Type 2 diabetes mellitus with hyperlipidemia (CMS/HCC) (CMS/HCC) LIPID PANEL, STANDARD Routine 04/26/2024 10:01 AM EDT Type 2 diabetes mellitus without complication, without long-term current use of insulin (CMS/[facility]) ALBUMIN, RANDOM URINE W/CREATININE Routine 04/26/2024 10:00 AM EDT Type 2 diabetes mellitus without complication, without long-term current use of insulin (CMS/[facility]) ZZZ HISTORICAL HEPATITIS C AB W/REFL TO HCV RNA, QN, PCR Routine 08/04/2022 4:18 PM EDT HIV 1/2 ANTIGEN/ANTIBODY, FOURTH GENERATION W/RFL Routine 08/04/2022 4:18 PM EDT from Last 3 Months or Most Recently Relevant to Health Maintenance Results * (ABNORMAL) POCT HGB A1C (11/21/2024 2:40 PM EST) Hemoglobin A1C 6.6(A) 4.0 - 6.0 % QC Media Lot # [id number] Lot# Expiration Date Blood 11/21/2024 2:40 PM EST Critical access hospital POINT OF CARE TEST ENTER/EDIT OR DERABLES Final Result * POCT Glucose (11/21/2024 2:39 PM EST) Glucose Blood, POC 159 60 - 200 mg/dL QC Media Lot # [id number] Lot# Expiration Date [id number] Blood Capillary blood specimen / Unknown 11/21/2024 2:39 PM EST Lucille COPELAND POINT OF CARE TEST ENTER/EDIT OR DERABLES Final Result * (ABNORMAL) Lipid Panel, Standard (04/26/2024 10:01 AM EDT) Triglycerides 42 <150 mg/dL [facility] Comment:Desirable Triglyceri de: less than 150 mg/dLBorderline High Triglyceride 150-199 mg/dLHigh Triglyceride: 200-499 mg/dLVery High Triglyceride: greater than or equal to 5OO mg/dL Cholesterol 98 <200 mg/dL [facility] Comment:Desirable Cholestero l: less than 200 mg/dLBorderline High Cholesterol: 200-239 mg/dLHigh Cholesterol: greater than 239 mg/dL LDL Cholesterol Calculated 56 <100 mg/dL [facility] Comment:Desirable LDL: less than 100 mg/dLNear Optimal/Above Optimal LDL: 110- 129 mg/dLBorderline High LDL: 130-159 mg/dLHigh LDL: 160-189 mg/dLVery High LDL: greater than or equal to 190 mg/dL HDL Cholesterol 34(L) >40 mg/dL [facility] Comment:Desirable HDL: great er than 40 mg/dL Note: This HDL assay may give artificially low results in patients with liver disease. Blood Venous blood specimen / Unknown 04/26/2024 10:01 AM EDT 04/26/2024 10:01 AM EDT Kingsley Luong MD LAB BLOOD ORDERABLES Final Resul t [facility] [address] [place] [address] [phone] * Albumin, Random Urine W/Creatinine (04/26/2024 10:00 AM EDT) Creatinine, Urine 110.97 mg/dL [facility] Microalbumin Urine <5.0 mg/L [facility] Microalbum Creatinine Ratio Ur TNP <30 ug/mg cr [facility] Comment:Unable to calculate albumin/creatinine ratio due to lowmicroalbumin or creatinine result. Urine (Urine, Random) 04/26/2024 10:00 AM EDT 04/26/2024 11:51 AM EDT Kingsley Luong MD LAB URINE ORDERABLES Final Resul t Performing Organization Address City/[facility]/ZIP Co de Phone Number [facility] [address] [place] [address] [phone] * HEPATITIS C AB W/REFL TO HCV RNA, QN, PCR (08/04/2022 4:18 PM EDT) HEPATITIS C ANTIBODY NON-REACTI VE NON-REACT NATALIE CONVERTED LEGACY LABS INDEX 0.05 <1.00 CONVERT[facility]GACY LABS Comment: ?? HCV antibody was non-reactive. There is no laboratory ?? evidence of HCV infection. ?? In most cases, no further action is required. However, if recent HCV exposure is suspected, a test for HCV RNA (test code 31069) is suggested. ?? For additional information please refer to http://education.[employer]/faq/JJS36g6 (This link is being provided for informational/ educational purposes only.) ?? 08/04/2022 4:18 PM EDT us Lucille Boss ANP HISTORICAL/NON ORDERABLE LABS Fi nal Result Performing Organization Address City/[facility] Co de Phone Number CONVERTED LEGACY LABS * HIV 1/2 ANTIGEN/ANTIBODY,FOURTH GENERATION W/RFL (08/04/2022 4:18 PM EDT) HIV-1/2 ANTIGEN AND ANTIBODIES, 4TH GENERATION W/ REFLEX NON-REACT NATALIE NON-REACT NATALIE CONVERTED LEGACY LABS Comment: HIV-1 antigen and HIV-1/HIV-2 antibodies were not detected. There is no laboratory evidence of HIV infection. ?? PLEASE NOTE: This information has been disclosed to you from records whose confidentiality may be protected by state law. ??If your state requires such protection, then the state law prohibits you from making any further disclosure of the information without the specific written consent of the person to whom it pertains, or as otherwise permitted by law. A general authorization for the release of medical or other information is NOT sufficient for this purpose. ? For additional information please refer to http://[employer]/faq/VGT626 (This link is being provided for informational/ educational purposes only.) ? The performance of this assay has not been clinically validated in patients less than 2 years old. ?? 08/04/2022 4:18 PM EDT Critical access hospital LAB BLOOD ORDERABLES Final Resul t CONVERTED LEGACY LABS from Last 3 Months or Most Recently Relevant to Health Maintenance Insurance [facility] PARTIAL [facility] DENTAL - [place]SN PARTIAL (MEDICAID) [place] DENTAL OF [place] Care Teams Farmworker Poultry Relationship Specialty Start Date End Date Lucille Boss ANP [address] [place] [phone] PCP - General Family Medicine 11/27/22 Angelika Renteria [address] [place] [address] 3rd [place] [address] Cardiology 10/07/24
--- OUTSIDE RECORDS SUMMARY | 2024-12-08 10:45 | XMS_ITS | Encounter Summary ---
Author Organization [employer] Address [address] [place] [address] Care Team Providers Care Kitchen Help Handyman Name Role Phone Lucille Boss Primary Care Provider [phone] Sae Renterian Unavailable Reason for Visit * Reason Comments Pre-visit Planning SDOH screening negat marcelo and Tobacco screening negative Encounter Details Date Type Department Care Team ([facility] Contact Info) Description 11/10/2024 Patient Outreach [facility] [address] [place] [address] Lucille Boss ANP [address] [place] [address] Pre-visit Planning (SDOH screening negative and Tobacco screening negative) Social History Tobacco Use Types Packs/Day Years [...] AM EDT documented as of this encounter Progress Notes * Lucia Bañuelos - 11/10/2024 11:08 AM EST CC Lucia Morelos placed successful outbound call to patient for pre-visit planning. Patient name and confirmed. Patient confirms appt date and time, and has transportation arrangements. Biggest concern for appointment at this time is [facility]. Patient educated on extended clinic hours on Mondays and Wednesdays, and Walk-In Urgent Care Located in [facility]. Patient provided with after-hours line for [facility], , which offer night time triage service and option to transfer to special effects person provider if needed . Patient advised to bring to appointment a photo id and insurance card. Appropriate screenings completed in anticipation of appointment. documented in this encounter Plan of Treatment Not on file documented as of this encounter Visit Diagnoses Not on filedocumented in this encounter Additional Health Concerns Assessment Noted Time PHQ-9 Depression Total Score: 5 03/06/20 24 3:25 PM EDT documented as of this encounter Care Teams Kitchen Help Handyman Relationship Specialty Start Date End Date Lucille Boss ANP [address] [place] [phone] PCP - General Family Medicine 11/27/22 Angelika Renteria [address] Floor [place] [address] Cardiology 10/07/24 documented as of this encounter
--- OUTSIDE RECORDS SUMMARY | 2024-12-08 10:45 | XMS_ITS | Encounter Summary ---
Author Organization [employer] Address [address] [facility] [address] 7t [place] [address] Care Team Providers Care Simulation Analyst Name Role Phone Lucille Boss ANP Primary Care Provider [phone] Sae Renterian Unavailable Reason for Visit * Reason Onset Date Comments Hospital Follow-up 03/06/2023 Encounter Details Date Type Department Care Team ([facility] Contact Info) Description 03/06/2023 Telephone [facility] MEDICINE [address] [place] [address] Lucille Boss ANP 230 [place] [address] Hospital Follow-up Social History Tobacco Use Types Packs/Day Years Used Date Smoking Tobacco: Never Smokeless Tobacco: Never Alcohol Use Standard [...] suspected to have Coronavirus/COVID-19? No / Unsure 03/09/2023 9:03 AM EDT documented as of this encounter Miscellaneous Notes * Telephone Encounter - Viridiana Gregg LPN - 03/14/2023 3:12 PM EDT Called back with spouse who spks latvian. Patient is out continuously waiting to see the High Pressure Firer scheduled for 04/18/23, patient has been out of work since 03/02/23 per spouse. FMLA to be processedand to provider. * Telephone Encounter - Viridiana Gregg LPN - 03/14/2023 2:51 PM EDT Spk w/patient but only a littel latvian, patient will call us back with someone who can speak latvian to fill out paperwork for [place] PF[place]. Pending call back. * Telephone Encounter - Terese Calhoun - 03/06/2023 9:12 AM EDT Tc from pt requesting a HDF appt. Pt was admitted at [facility] on 03/03/23 and discharged on 03/05/23 due to chest pain. Dx with a clogged artery. Patient speaks yakut and denies any symptoms at this time. documented in this encounter Plan of Treatment Not on file documented as of this encounter Visit Diagnoses Not on filedocumented in this encounter Care Teams Simulation Analyst Relationship Specialty Start Date End Date Lucille Boss ANP [address] [place] [address] PCP - General Family Medicine 11/27/22 Angelika Renteria [address] 3rd [place] [address] Cardiology 10/07/24 ao Gastroenterology 09/29/24 10/06/24 documented as of this encounter
--- OUTSIDE RECORDS SUMMARY | 2024-12-08 10:45 | XMS_ITS | Encounter Summary ---
Author Organization [employer] Address [address] [facility] 7t [place] [address] Care Team Providers Care Exerciser Horse Name Role Phone Lucille Boss MIN Primary Care Provider [phone] Angelika Renteria Unavailable Reason for Visit * Reason Comments Med Refill Encounter Details Date Type Department Care Team ([facility] Contact Info) Description 09/10/2023 Refill [facility] MEDICINE 230 [place] [address] Marie Doan MD 230 [place] [address] Social History Tobacco Use Types Packs/Day Years Used Date Smoking Tobacco: Never Passive Smoke Exposure: Never Smokeless Tobacco: Never Alcohol Use Standard Drinks/Week Comments Not Currently 0 (1 standard drink = 0.6 oz pur e alcohol) Housing Stability Answer Date Recorded What is [...] t he electric, gas, oil or water [employer] threatened to shut off services in your [...] on filedocumented in this encounter Care Teams Exerciser Horse Relationship Specialty Start Date End Date Lucille Boss ANP [address] [place] [address] PCP - General Family Medicine 11/27/22 Angelika Renteria [address] [place] [address] 3rd [place] [address] Cardiology 10/07/24 ao Gastroenterology 09/29/24 10/06/24 documented as of this encounter
--- OUTSIDE RECORDS SUMMARY | 2024-12-08 10:45 | XMS_ITS | Encounter Summary ---
Author Organization [employer] Address [address] [facility] 7t [place] [address] Care Team Providers Care Risk Consulting Treasury Director Name Role Phone Lucille Boss Primary Care Provider [phone] Sae Renterian Unavailable Reason for Visit * Reason Onset Date Comments Nurse Triage 06/07/2023 Encounter Details Date Type Department Care Team ([facility] Contact Info) Description 06/07/2023 Telephone [facility] 230 [place] [address] Lucille Boss ANP 230 [place] [address] Nurse Triage Social History Tobacco Use Types Packs/Day Years [...] encounter Miscellaneous Notes * Telephone Encounter - Luisa Frausto RN - 06/07/2023 4:11 PM EDT Triage call with [place] [facility] [place] [id number] Pt has been seen in office 05/16/23 for right sided low back pain , using lidocaine patches with goodeffect. Pt calls today with left hip pain which has progressively gotten worse and radiates down left leg with some numbness and tingling. Pt reports that tylenol is effective for pain and only takesit once daily in the morning. Pt hasn't tried ice/heat at all. Pt does ambulate but with pain not using cane or assistive device. Advised Pt to come to [facility] tomorrow morning to be seen by provider andPt agrees with dispostion and home care reviewed. Protocol Used: Hip Pain (Adult) Protocol-Based Disposition: See in Office or Video Visit Today or Tomorrow Video visit not offered Positive Triage Questions: * Numbness in a leg or foot (i.e., loss of sensation) * Patient wants to be seen * All higher-acuity triage questions were negative Care Advice Discussed: * Pain Medicines * Pain Medicines - Extra Notes and Warnings * Rest Your Hip for the Next Couple Days * Reasons To Call Back - Moderate pain (e.g., limping) lasts more than 3 days - Mild pain lasts more than 7 days - Signs of infection occur (e.g., spreading redness, warmth, fever) - You become worse * Use a Cold Pack for Pain * Use Heat on Area After 48 Hours * Rest * Telephone Encounter - Terese Calhoun - 06/07/2023 3:30 PM EDT Symptom: Leg Pain - Not From Injury Outcome: Schedule an urgent appointment (within 1 hour) or talk to a nurse or provider soon Reason: Trouble walking The caller accepted this outcome Patient speaks mohawk documented in this encounter Plan of Treatment Not on file documented as of this encounter Visit Diagnoses Not on filedocumented in this encounter Care Teams Risk Consulting Treasury Director Relationship Specialty Start Date End Date Lucille Boss ANP [address] [place] [address] PCP - General Family Medicine 11/27/22 Angelika Renteria [address] [place] [address] 3[address] [place] [address] Cardiology 10/07/24 [facility] Gastroenterology 09/29/24 10/06/24 documented as of this encounter
--- OUTSIDE RECORDS SUMMARY | 2024-12-08 10:45 | XMS_ITS | Encounter Summary ---
Author Organization [employer] Address [address] [facility] 7t [place] [address] Care Team Providers Care Adolescent Counselor Name Role Phone Lucille Boss Primary Care Provider [phone] Angelika Renteria Unavailable Reason for Visit * Reason Comments Med Refill Encounter Details Date Type Department Care Team ([facility] Contact Info) Description 07/08/2023 Refill [facility] MEDICINE 230 [place] [address] Taryn Gleason MD 230 [place] [address] Social History Tobacco Use Types Packs/Day Years [...] on filedocumented in this encounter Care Teams Adolescent Counselor Relationship Specialty Start Date End Date Lucille Boss ANP 230 [place] [address] PCP - General Family Medicine 11/27/22 Angelika Renteria [address] 3rd Floor [place] [address] Cardiology 10/07/24 ao Gastroenterology 09/29/24 10/06/24 documented as of this encounter
--- OUTSIDE RECORDS SUMMARY | 2024-12-08 10:45 | XMS_ITS | Encounter Summary ---
Author Organization [employer] Address [address] [facility] [address] 7t [place] [address] Care Team Providers Care Paint Roller Covermaker Name Role Phone Lucille Boss MIN Primary Care Provider [phone] Angelika Renteria Unavailable Reason for Visit * Reason Onset Date Comments prophy appt 07/30/2023 Encounter Details Date Type Department Care Team ([facility] Contact Info) Description 07/30/2023 Telephone [facility] 230 [place] [address] MissaelLouisSabina 230 [place] [address] prophy appt Social History Tobacco Use Types Packs/Day Years [...] encounter Miscellaneous Notes * Telephone Encounter - Stephany Vazquez - 07/30/2023 11:52 AM EDT Patient on waiting list since 11/2022 for prophy exam xrasy Checking in on status of appt DR documented in this encounter Plan of Treatment Not on file documented as of this encounter Visit Diagnoses Not on filedocumented in this encounter Care Teams Paint Roller Covermaker Relationship Specialty Start Date End Date Lucille Boss ANP [address] [place] [address] PCP - General Family Medicine 11/27/22 Angelika Renteria [address] [place] [address] 3rd [place] [address] Cardiology 10/07/24 ao Gastroenterology 09/29/24 10/06/24 documented as of this encounter
--- OUTSIDE RECORDS SUMMARY | 2024-12-08 10:45 | XMS_ITS | Encounter Summary ---
Author Organization [employer] Address [address] [facility] [address] 7t [place] [address] Care Team Providers Care Bid Analyst Name Role Phone Lucille Boss MIN Primary Care Provider [phone] Myra Angelika Unavailable Reason for Visit * Reason Onset Date Comments chart prep 11/20/2024 Encounter Details Date Type Department Care Team ([facility] Contact Info) Description 11/20/2024 Telephone [facility] MEDICINE 230 [place] [address] Beulah Emanuel MA chart prep Social History Tobacco Use Types Packs/Day Years [...] encounter Miscellaneous Notes * Telephone Encounter - Beulah Emanuel MA - 11/20/2024 3:01 PM EST Chart Prep Labs: done Images: not applicable Vaccines due: yes Referrals: gastro autho Screenings: colonoscopy , Foot Exam Overdue care gaps: A1C, Glucose, Sbirt documented in this encounter Plan of Treatment Not on file documented as of this encounter Visit Diagnoses Not on filedocumented in this encounter Additional Health Concerns Assessment Noted Time PHQ-9 Depression Total Score: 5 03/06/20 24 3:25 PM EDT documented as of this encounter Care Teams Bid Analyst Relationship Specialty Start Date End Date Lucille Boss ANP [address] [place] [address] PCP - General Family Medicine 11/27/22 Angelika Renteria [address] [place] [address] 3rd [place] [address] Cardiology 10/07/24 documented as of this encounter
--- OUTSIDE RECORDS SUMMARY | 2024-12-08 10:46 | XMS_ITS | Encounter Summary ---
Author Organization [employer] Address [address] [facility] [address] 7t [place] [address] Care Team Providers Care Lawn Service Worker Name Role Phone Lucille Boss Primary Care Provider [phone] Sae Renterian Unavailable Reason for Visit * Reason Comments Med Refill Encounter Details Date Type Department Care Team ([facility] Contact Info) Description 09/28/2024 Refill [facility] MEDICINE 230 [place], [place] [phone] Lucille Boss ANP 230 [place] [address] Social History Tobacco Use Types Packs/Day Years [...] documented as of this encounter Care Teams Lawn Service Worker Relationship Specialty Start Date End Date Lucille Boss ANP [address] [place] [address] PCP - General Family Medicine 11/27/22 Angelika Renteria [address] [place] [address] 3rd [place] [address] Cardiology 10/07/24 ao Gastroenterology 09/29/24 10/06/24 documented as of this encounter
--- OUTSIDE RECORDS SUMMARY | 2024-12-08 10:46 | XMS_ITS | Encounter Summary ---
Author Organization [employer] Address [address] [facility] 7t [place] [address] Care Team Providers Care Ct Mri Technologist Name Role Phone Lucille Boss Primary Care Provider [phone] MyraAngelika Unavailable Reason for Referral * Consultation (Routine) - Authorized Specialty Diagnoses / Procedures Referred By Contrex t Referred To Contact General Surgery Diagnoses Umbilical hernia without obstruction and without gangrene Lucille Boss ANP 230 [place], [place] Phone: tel: fax: Moreno Montalvo MD [address] [place] [address] Phone: tel: fax: Referral ID Status Reason Start Date Expiration Date Visits Requested Visits Authorized [id number] Authorized Specialty Services Required 11/21/2024 11/21/2025 1 1 * Neurology (Routine) - Authorized Specialty Diagnoses / Procedures Referred By Contac t Referred To Contact Diagnoses Paresthesia of both feet Procedures EMG Lucille Boss ANP 230 [place] [address] Phone: tel: fax: [address] Phone: tel: fax: Referral ID Status Reason Start Date Expiration Date V isits Requested Visits Authorized [id number] Authorized 11/21/2024 11/21/2025 1 1 Reason for Visit * Reason Comments Annual Exam Encounter Details Date Type Department Care Team (Latest Contact Info) Description 11/21/2024 2:30 PM EST Office Visit [facility] MEDICINE 230 [place] [address] Lucille Boss ANP 230 [place] [address] Rosacea (Primary Dx); Type 2 diabetes mellitus with hyperlipidemia (CMS/HCC) (CMS/HCC); Umbilical hernia without obstruction and without gangrene; Paresthesia of both feet; Coronary artery disease involving [place] heart without angina pectoris, unspecified vessel or lesion type; ST elevation myocardial infarction involving left anterior descending (LAD) coronary artery (CMS/HCC) Social History Tobacco Use Types Packs/Day Years [...] AM EDT documented as of this encounter Last Filed Vital Signs Vital Sign Reading Time Taken Comments Blood Pressure 125/74 11/21/2024 2:38 PM EST Pulse 75 11/21/2024 2:38 PM EST Temperature 36.7 ??C (98 ??F) 11/21/2024 2:38 PM EST Respiratory Rate 14 11/21/2024 2:38 PM EST Oxygen Saturation 98% 11/21/2024 2:38 PM EST Inhaled Oxygen Concentration - - Weight 109 kg (240 lb 6.4 oz) 11/21/2024 2:38 PM EST Height - - Body Mass Index 36.55 07/09/2024 3:19 PM EDT documented in this encounter Progress Notes * MIN Flor - 11/21/2024 2:30 PM EST SUBJECTIVE: Rodolfo Humphrey is a 59 y.o. year old adult who presents for chronic disease management. Denies recent illness, injury, or hospitalization. PMH incl DM w/ CAD (h/o STEMI, DELL placed 03/03/2023), HLD, ischemic cardiomyopathy Referred 11/2023 for eye exam Referred May 2024 for c-scope Acute Concerns: Umbilical hernia - would like repaired. Worse w/ bending, lifting. Been present for 2+ years. Not painful. Rash on face - worse with cold exposure. Assoc sx incl flushing. 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 Social History Social History Narrative Not on file Patient Active Problem List Diagnosis Paresthesia of both feet Acute pain of right shoulder Type 2 diabetes mellitus with hyperlipidemia ([facility]/HCC) ([facility]) CAD (coronary artery disease) Other hyperlipidemia Umbilical hernia Ischemic cardiomyopathy Class 1 obesity due to excess calories with serious comorbidity and body mass index (BMI) of 34.0 to 34.9 in adult Class [address] elevation myocardial infarction involving left anterior descending (LAD) coronary artery ([facility]) History reviewed. No pertinent surgical history. No family history on file. Review of Systems Constitutional: Negative for chills and fever. HENT: Negative for sore throat. Respiratory: Negative for cough and shortness of breath. Cardiovascular: Negative for chest pain. Gastrointestinal: Negative for constipation and diarrhea. Umbilical hernia Endocrine: Negative for polydipsia, polyphagia and polyuria. Genitourinary: Negative for dysuria. Musculoskeletal: Negative for arthralgias. Skin: Positive for rash. Neurological: Negative for weakness. OBJECTIVE: Vitals: 11/21/24 1438 BP: 125/74 BP Location: Left arm Patient Position: Sitting BP Cuff Size: Adult Pulse: 75 Resp: 14 Temp: 98 ??F (36.7 ??C) TempSrc: Temporal SpO2: 98% Weight: 240 lb 6.4 oz (109 kg) Physical Exam Vitals reviewed. Constitutional: General: Rodolfo is not in acute distress. Appearance: Normal appearance. Rodolfo is not ill-appearing. HENT: Head: Normocephalic and atraumatic. Eyes: General: No scleral icterus. Extraocular Movements: Extraocular movements intact. Pupils: Pupils are equal, round, and reactive to light. Cardiovascular: Rate and Rhythm: Normal rate and regular rhythm. Pulmonary: Effort: Pulmonary effort is normal. No accessory muscle usage or respiratory distress. Abdominal: Comments: moderate sized umbilical hernia - reduces easily Skin: Comments: Telangiectases, central facial erythema, scattered inflammatory papules Neurological: Mental Status: Rodolfo is alert and oriented to person, place, and time. Psychiatric: Mood and Affect: Mood normal. Behavior: Behavior normal. ASSESSMENT/PLAN Rodolfo was seen today for annual exam. Diagnoses and all orders for this visit: Rosacea (Primary) Telangiectases, central facial erythema, scattered inflammatory papules, +flushing Advised moisturizing, use metrogel as below, cover face during prolonged outside time - metroNIDAZOLE (Metrogel) 0.75 % gel; Apply a thin film to face twice daily, morning and evening, to entire affected areas after washing. Type 2 diabetes mellitus with hyperlipidemia ([facility]) ([facility]) A1c remains at goal </= 7, has gone up a little bit and encouraged Zaina to increase exercise anddecrease sweets He will continue metformin XR 500 mg once daily plus Farxiga 5 mg (appears that drug formulary has changed and prefers Jardiance, will switch to Jardiance 10mg 11/21/2024) On ACEI, statin, ASA and Brilinta Foot exam 07/09/24 sensation intact to monofilament, pulses present 2+ Referred February 2024 for ophthalmology Lab Results Component Value Date HGBA1C 6.6 (A) 11/21/2024 HGBA1C 6.3 (A) 03/06/2024 HGBA1C 6.3 (A) 12/12/2023 Last renal function: Lab Results Component Value Date GLUCOSE 101 04/26/2024 NA 141 04/26/2024 K 4.6 04/26/2024 CO2 29 04/26/2024 CL 105 04/26/2024 BUN 18 (H) 04/26/2024 CREATININE 1.21 04/26/2024 EGFR >60 04/26/2024 Lab Results Component Value Date MICROALBCREA 3 08/04/2022 Lab Results Component Value Date MICROALBCREU TNP 04/26/2024 Paresthesia of both feet Did have question of neuropathy on BLE EMG in July 2024 and recommendation was to repeat to clarify and confirm diagnosis. Will order repeat. EMG 08/06/24 IMPRESSION: 1. This is an abnormal study. 2. There is electrodiagnostic findings suggestive of beginning peripheral neuropathy. 3. There is no electrodiagnostic evidence for lumbosacral plexopathy or lumbar radiculopathy. CLINICAL COMMENT: Possible beginning peripheral neuropathy. Please refer back for repeat NCS/EMG in 6 months to confirm/clarify. - POCT Glucose - POCT HGB A1C CAD 03/03/2023 proximal LAD 95% stenosis, DELL placed, culprit lesion, 1st OM 30% stenosis, RCA minimal luminal irregularities He is supposed to be on Brilinta and ASA 81 mg daily however with med reconciliation history does not appear Brilinta is being filled. Have sent refill and asked nursing team to call patient to reinforce the importance of these meds. Umbilical hernia without obstruction and without gangrene Will refer to general surgery Follow Up: 3-6 mos, sooner prn, annual labs due April Current Outpatient Medications on File Prior to Visit Medication Sig Dispense Refill Acetaminophen Extra Strength 500 MG tablet TAKE 2 TABLETS (1,000 MG) BY MOUTH IF NEEDED IN THE MORNING AND AT BEDTIME FOR MILD PAIN. 30 tablet 1 aspirin (Aspirin Low Dose) 81 MG EC tablet TAKE 1 TABLET BY MOUTH EVERY DAY 90 tablet 1 atorvastatin (Lipitor) 80 MG tablet TAKE 1 TABLET BY MOUTH AT BEDTIME 90 tablet 1 carvedilol (Coreg) 3.125 MG tablet TAKE 1 TABLET BY MOUTH TWICE A DAY 180 tablet 1 dapagliflozin (Farxiga) 5 MG Take 1 tablet (5 mg) by mouth Once per day. 90 tablet 0 doxylamine ([facility] Sleep-Aid, Doxylamine,) 25 MG tablet TAKE 1/2-1 TABLET BY MOUTH AT BEDTIME IF NEEDED FOR INSOMNIA 30 tablet 1 lidocaine (Lidoderm) 5 % patch Apply 1 patch topically in the morning. Remove & discard patch within 12 hours or as directed by MD. (Patient not taking: Reported on 03/06/2024) 15 patch 2 lisinopril 5 MG tablet TAKE 1 TABLET BY MOUTH EVERY MORNING 90 tablet 1 metFORMIN XR (Glucophage-XR) 500 MG 24 hr tablet TAKE 1 TABLET BY MOUTH EVERY MORNING 90 tablet 1 nitroglycerin (Nitrostat) 0.[address] 1 TABLET UNDER TONGUE EVERY 5 MIN NEEDED FOR CHEST PAIN, MAX OF 3 DOSES/15 MIN CALL 911/SEEK MEDICAL ATTENTION IF PAIN PERSISTS (Patient not taking: Reported on 03/06/2024) 90 tablet 0 ticagrelor (Brilinta) 90 MG tablet TAKE 1 TABLET BY MOUTH TWICE DAILY 180 tablet 1 No current facility-administered medications on file prior to visit. documented in this encounter Plan of Treatment Scheduled Orders Name Type Priority Associated Diagnoses Orde r Schedule EMG Neurology Routine Paresthesia of both feet Expected: 11/21/2024, Expires: 05/21/2025 Scheduled Referrals Name Type Priority Associated Diagnoses Orde r Schedule Referral to General Surgery Outpatient Referral Routine Umbilical hernia without obstruction and without gangrene Expected: 11/21/2024 (Approximate), Expires: 11/21/2025 documented as of this encounter Procedures Procedure Name Priority Date/Time Associated Diagnosis Comments POCT GLYCATED HEMOGLOBIN, TOTAL Routine 11/21/2024 2:40 PM EST Type 2 diabetes mellitus with hyperlipidemia ([facility]/HCC) ([facility]) POCT GLUCOSE Routine 11/21/2024 2:39 PM EST Type 2 diabetes mellitus with hyperlipidemia ([facility]CC) ([facility]) documented in this encounter Results * (ABNORMAL) POCT HGB A1C (11/21/2024 2:40 PM EST) Hemoglobin A1C 6.6(A) 4.0 - 6.0 % QC Media Lot # [id number] Lot# Expiration Date Blood 11/21/2024 2:40 PM EST Result [facility]ro[facility] [place] POINT OF CARE TEST ENTER/EDIT OR DERABLES Final Result * POCT Glucose (11/21/2024 2:39 PM EST) Glucose Blood, POC 159 60 - 200 mg/dL QC Media Lot # [id number] Lot# Expiration Date ,025 Blood Capillary blood specimen / Unknown 11/21/2024 2:39 PM EST Result [facility] [place] POINT OF CARE TEST ENTER/EDIT OR DERABLES Final Result documented in this encounter Visit Diagnoses Diagnosis Rosacea- Primary Type 2 diabetes mellitus with hyperlipidemia ([facility]CC) ([facility]) Umbilical hernia without obstruction and without gangrene Paresthesia of both feet Coronary artery disease involving [place] heart without angina pectoris, unspecified vessel or lesion type ST elevation myocardial infarction involving left anterior descending (LAD) coronary artery ([facility]) documented in this encounter Additional Health Concerns Assessment Noted Time PHQ-9 Depression Total Score: 5 03/06/20 24 3:25 PM EDT documented as of this encounter Care Teams Ct Mri Technologist Relationship Specialty Start Date End Date Lucille Boss ANP [address] [place] [address] PCP - General Family Medicine 11/27/22 Angelika Renteria [address] [place] [address] 3rd [place] [address] Cardiology 10/07/24 documented as of this encounter
--- OUTSIDE RECORDS SUMMARY | 2024-12-08 10:46 | XMS_ITS | Encounter Summary ---
Author Organization [employer] Address [address] 7t [place] [address] Care Team Providers Care Inspector Conveyor Line Name Role Phone Lucille Boss Primary Care Provider [phone] Angelika Renteria Unavailable Encounter Details Date Type Department Care Team (Latest Contact Info) Description 11/21/2024 Travel Social History Tobacco Use Types Packs/Day Years [...] documented as of this encounter Care Teams Inspector Conveyor Line Relationship Specialty Start Date End Date Lucille Boss ANP [address] [place] [address] PCP - General Family Medicine 11/27/22 Angelika Renteria [address] [place] [address] 3rd [place] [address] Cardiology 10/07/24 documented as of this encounter
--- OUTSIDE RECORDS SUMMARY | 2024-12-08 10:46 | XMS_ITS | Encounter Summary ---
Author Organization [employer] Address [address] 7t [place] [address] Care Team Providers Care Social Media Marketing Manager Name Role Phone Lucille Boss MIN Primary Care Provider [phone] Myra, Angelika Unavailable Reason for Visit * Reason Onset Date Comments appt 08/13/2024 Encounter Details Date Type Department Care Team ([facility] Contact Info) Description 08/13/[address] [facility] [address] [place] [address] Erik Garcia, DMD [address] [place] [address] appt Social History Tobacco Use Types Packs/Day [...] * Telephone Encounter - Stephany Vazquez - 08/13/2024 12:36 PM EDT Patient on wait list for comp exam 08/2023. He would like a status on appt DR documented in this encounter Plan of Treatment Not on file documented as of this encounter Visit Diagnoses Not on filedocumented in this encounter Additional Health Concerns Assessment Noted Time PHQ-9 Depression Total Score: 5 03/06/20 24 3:25 PM EDT documented as of this encounter Care Teams Social Media Marketing Manager Relationship Specialty Start Date End Date Lucille Boss ANP [address] [place] [address] PCP - General Family Medicine 11/27/22 Angelika Renteria [address] [place] [address] [address] [place] [address] Cardiology 10/07/24 [facility] Gastroenterology 09/29/24 10/06/24 documented as of this encounter
--- OUTSIDE RECORDS SUMMARY | 2024-12-08 10:46 | XMS_ITS | Encounter Summary ---
Author Organization [employer] Address [address] 7t [place] [address] Care Team Providers Care Media Professional Name Role Phone Lucille Boss Primary Care Provider [phone] Sae Renterian Unavailable Reason for Visit * Reason Comments Med Refill Encounter Details Date Type Department Care Team ([facility] Contact Info) Description 09/02/2024 Refill [facility] [address] [place], [place] [phone] Lucille Boss ANP [address] [place] [address] Social History Tobacco Use Types Packs/Day Years [...] documented as of this encounter Care Teams Media Professional Relationship Specialty Start Date End Date Lucille Boss ANP [address] [place] [address] PCP - General Family Medicine 11/27/22 Angelika Renteria [address] [place] [address] 3rd [place] [address] Cardiology 10/07/24 ao Gastroenterology 09/29/24 10/06/24 documented as of this encounter
--- OUTSIDE RECORDS SUMMARY | 2024-12-08 10:46 | XMS_ITS | Encounter Summary ---
Author Organization [employer] Address [address] 7t [place] [address] Care Team Providers Care Research Geneticist Name Role Phone Lucille Boss MIN Primary Care Provider [phone] Angelika Renteria Unavailable Reason for Visit * Reason Onset Date Comments Medication Question 11/21/2024 Encounter Details Date Type Department Care Team ([facility] Contact Info) Description 11/21/2024 Telephone [facility] MEDICINE [address] [place] [address] Mavis Beltrán RN Medication Question Social History Tobacco Use Types Packs/Day Years [...] encounter Miscellaneous Notes * Telephone Encounter - Mavis Beltrán RN - 11/24/2024 9:10 AM EST Telephone call again using [facility] business continuity manager #[id number] to notify pt that Briliinta med is free of cost. No answer, left voicemail to call back [facility]. Pt to call back PRN. Called [facility] pharmacy, pt picked up Brilinta 11/23/24. * Telephone Encounter - Mavis Beltrán RN - 11/21/2024 3:27 PM EST Called pt using [facility] business continuity manager Rg #[id number]. 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 Pt states he has not been taking this because it costs $60/month. Adivsed him would tell PCP and see if alternative can be prescribed. Also advised pt that insurance no longer covers Farxiga and pt will be switched to Jardiance. Pt verbalized understanding. Advised Rx notsent yet but will be sent later today and to call pharmacy before going to picked edge sewing machine operator meds. Pt verbalized understanding. Reviewed that repeat EMG is ordered and to expect call from [facility] in 1-2 weeks to schedule. Pt in agreement with plan, to call clinic PRN. Called [facility] on file, spoke with Davis who stated that there is no charge for the Brilinta or Jardiance. Called pt back using S purchase price analyst Rg #[id number] to inform him medications are without cost, no answer, left voicemail to call back [facility]. Will task to call again as FYI. ----- Message from Lucille Boss sent at 11/21/2024 3:21 PM EST ----- Please reach out to patient-I saw him today but after visit was reconciling his medications and noticed that it looks like he has not picked up Brilinta from pharmacy in quite some time. This medication is very important to take, in conjunction with a daily baby aspirin, for his heart. Also, one ofhis diabetes medicines (Farxiga) is no longer on his insurance company's drug formulary. Would recommend we replace this with Jardiance 10 mg once daily which does appear to be covered. Thanks In office verbal update from PCP Lucille Boss WHITE METAL CORROSION PROOFER: Please also tell pt that repeat nerve conduction test is ordered, expect call to schedule this. documented in this encounter Plan of Treatment Not on file documented as of this encounter Visit Diagnoses Not on filedocumented in this encounter Additional Health Concerns Assessment Noted Time PHQ-9 Depression Total Score: 5 03/06/20 24 3:25 PM EDT documented as of this encounter Care Teams Research Geneticist Relationship Specialty Start Date End Date Lucille Boss ANP [address] [place] [address] PCP - General Family Medicine 11/27/22 Angelika Renteria [address] [place] [address] 3[address] [place] [address] Cardiology 10/07/24 documented as of this encounter
== END 2024-12-08 10:09 | disposition home or self-care (01) ==
PROVIDERS: PCP Internal Medicine; Visit Provider Surgery
DX: K42.0 Umbilical hernia with obstruction, without gangrene (principal)
CPT/HCPCS: 99204

== ENCOUNTER → 2024-12-08 09:49 | Outpatient (BNVA) | payer OTHER, SELFPAY | PROVIDERS: PCP Internal Medicine; Visit Provider Surgery | DX: K42.0 Umbilical hernia with obstruction, without gangrene (principal) | CPT/HCPCS: 99202 ==

== ENCOUNTER 2024-12-26 08:23 | Outpatient (AMB) | payer OTHER, SELFPAY ==
[2024-12-26 08:30] VITALS: BP 120/62; PULSE 59; BMI 35.7
--- NOTE | 2024-12-26 08:30 | A.OFFVIS_ITS ---
Vital Signs 12/26/24 08:30 Height 5 ft 8 in Weight 235 lb 0.204 oz BMI 35.7 BP 120/62 Blood Pressure Location Lt brachial Position Sitting Pulse 59 Intake Visit Reasons: overdue f/up/hernia repair with mesh under MAC. Corporate Law Assistant Required: Yes Corporate Law Assistant Services: Corporate Law Assistant Present Corporate Law Assistant Name: Guera [phone] Accompanied by: Self / Same As Patient Allergies No Known Allergies Allergy (Verified 12/08/24 09:58) Medication List - Last Reconciled 12/26/24 by Angelika Renteria NP-C aspirin 81 mg PO DAILY atorvastatin 80 mg PO DAILY carvedilol 3.125 mg PO BID metformin ER 500 mg PO DAILY nitroglycerin mg sublingual ticagrelor (Brilinta) 60 mg PO BID HPI HPI overdue f/up/hernia repair with mesh under MAC.: Details: Rodolfo is a 59-year-old male with past medical history of mild obesity, hypertension, pre diabetes who presented with chest discomfort 03/03/2023 and ruled in for anterior STEMI. He was transferred to [facility] and underwent cardiac catheterization showing severe proximal LAD stenosis and a DELL was placed. Echocardiogram showed EF 25-30% with regional wall motion abnormalities. A follow-up echo showed improvement in EF up to 50-55%. Today he reports that he has been doing well since his last visit here 09/14/2023. He has not had any recurrent chest discomfort. 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 He is able to climb stairs without any difficulty. He has no shortness of breath, PND, orthopnea or edema. He has no heart palpitations, lightheadedness, presyncope, syncope. He is compliant with all meds. No bleeding issues reported. He does have an umbilical hernia and will be undergoing surgical repair in the near future. He is requesting preop cardiovascular clearance. [facility] Surgical History History of cardiac cath Family History Mother No problems noted. Father No problems noted. Social History Alcohol intake: never Patient Tobacco Use Status: Never used Tobacco Review of Systems Const All systems reviewed & are unremarkable except as noted in HPI and below Denies chills, Denies fatigue, Denies fever(s), Denies weight gain and Denies weight loss ENT Denies dizziness Card Denies chest pain, Denies leg edema, Denies lightheadedness, Denies palpitations, Denies dyspnea on exertion, Denies orthopnea and Denies other Resp Denies cough and Denies dyspnea on exertion GI Denies hematochezia and Denies change in stool character Musc Denies abnormal gait, Denies muscle weakness, Denies numbness, Denies radiating pain into limb and Denies tingling Neuro Denies abnormal gait, Denies dizziness, Denies numbness and Denies tingling Endo Denies fatigue and Denies palpitations Physical Exam Vital Signs: Last Vital Signs Pulse 59 12/26/24 08:30 BP 120/62 12/26/24 08:30 BMI result Body Mass Index 35.7 Const General: cooperative, healthy appearing, comfortable and no acute distress Orientation/consciousness: patient oriented x3 Neck Neck: Yes normal visual inspection and Yes no JVD Resp Effort & Inspection: normal respiratory effort Auscultation: clear to auscultation bilaterally, no rales, no rhonchi and no wheezes Cardio Rate: regular rate Rhythm: regular rhythm Heart sounds: S1 normal heart sound present, S2 normal heart sound present, no gallops, no murmurs and no rubs Neuro General: patient oriented x3 Extrem General: Yes normal to inspection and No no pedal edema Psych Appearance: grossly normal Mental Status: mental status grossly normal Speech and movement: Normal speech and movement present Office Procedures EKG Details: Today, read by me, sinus bradycardia, no acute ST or T-wave abnormalities, rate 59, QTC 407 millisecond [id number], Complete Assessment & Plan Assessment & Plan (1) CAD (coronary artery disease): Code(s): I25.10 - Atherosclerotic heart disease of [place] coronary artery without angina pectoris Category: Medical Plan: History of CAD, anterior STEMI 03/03/2023. Cardiac catheterization that day s howed 95% proximal LAD stenosis and DELL was placed. Initial echo showed reduction in EF 25-30% with regional wall motion abnormality. A repeat echocardiogram done 04/10/2023 showed EF 50-55% with basal anterior septal and mid anterior septal hypokinesis. EKG done today shows sinus bradycardia, rate 59. He reports no anginal symptoms. Continue aspirin indefinitely. He is currently still on Brilinta 90 mg b.i.d.. Will reduce that to 60 mg b.i.d., continuing dual antiplatelet therapy for a total of 30 months post STEMI, 08/2025. Then Brilinta can be stopped and continue on aspirin. Continue high- dose atorvastatin with ideal LDL goal less than 70. Continue carvedilol for good heart rate and blood pressure control. Signs and symptoms of angina reviewed. Cardiology follow-up 1 year, sooner if needed. (2) Stented coronary artery: Comment: Lad stent, 03/03/2023 Code(s): Z95.5 - Presence of coronary angioplasty implant and graft Category: Surgical (3) Ischemic cardiomyopathy: Code(s): I25.5 - Ischemic cardiomyopathy Category: Medical Plan: Ischemic cardiomyopathy following anterior STEMI 02/2023. Repeat echo 03/2023 showed improvement in EF up to 50-55%. He has no signs of heart failure on examination. Will plan to update echo prior to his next visit. Continue carvedilol. (4) History of cardiac cath: Comment: 03/03/2023 proximal LAD 95% stenosis, DELL placed, culprit lesion, 1st OM 30% stenosis, RCA minimal luminal irregularities Code(s): Z98.890 - Other specified postprocedural states Category: Surgical (5) Hyperlipidemia: Code(s): E78.5 - Hyperlipidemia, unspecified Category: Medical Plan: [place] LDL goal less than 70. Labs done 04/26/2024 showed LDL 56. Continue atorvastatin. (6) Preop cardiovascular exam: Code(s): Z01.810 - Encounter for preprocedural cardiovascular examination Category: Medical Plan: Preop for umbilical hernia repair with Dr. Montalvo, no date yet. Patient can proceed with low to intermediate cardiac risk. His Brilinta be can be held for 5 days prior to the procedure and plan to restart as soon as cleared by surgeon to do so. If procedure can be done on aspirin that would be ideal. If aspirin needs to be held it can per the direction of his surgeon. Continue carvedilol and atorvastatin. Call/consult Cardiology if needed. Plan Time spent on chart review, documentation, interview assessment Medications: New ticagrelor (Brilinta) Brilinta can be stopped after 09/03/2025. 60 mg PO BID 90 tabs 2RF Coding Level of Care Code Est Pt Level 4 (16930) Complex EM visit Add On G2211 Diagnoses CAD (coronary artery disease) I25.10 Stented coronary artery Z95.5 Ischemic cardiomyopathy I25.5 History of cardiac cath Z98.890 Hyperlipidemia E78.5 Preop cardiovascular exam Z01.810 CPT Codes EKG - CPT: [id number], Complete ([id number]) Time Spent (min) 32
--- OUTSIDE RECORDS SUMMARY | 2024-12-26 08:36 | XMS_ITS | Encounter Summary ---
Author Organization [employer] Address [address] 7t [place] [address] Care Team Providers Care Magazine Feeder Name Role Phone Lucille Boss ANP Primary Care Provider [phone] Sae Renterian Unavailable Reason for Visit * Reason Onset Date Comments Hospital Follow-up 03/06/2023 Encounter Details Date Type Department Care Team ([facility] Contact Info) Description 03/06/2023 Telephone [facility] MEDICINE [address] [place] [address] Lucille Boss ANP [address] [place] [address] Hospital Follow-up Social History Tobacco Use Types [...] EDT Called back with spouse who spks chadian. Patient is out continuously waiting to see the Marketing Analytics Analyst scheduled for 04/18/23, patient has been out of work since 03/02/23 per spouse. FMLA to be processedand to provider. * Telephone Encounter - Viridiana Gregg LPN - 03/14/2023 2:51 PM EDT Spk w/patient but only a littel chadian, patient will call us back with someone who can speak chadian to fill out paperwork for [place] PF[place]. Pending call back. * Telephone Encounter - Terese Calhoun - 03/06/2023 9:12 AM EDT Tc from pt requesting a HDF appt. Pt was admitted at [facility] on 03/03/23 and discharged on 03/05/23 due to chest pain. Dx with a clogged artery. Patient speaks belizean and denies any symptoms at this time. documented in this encounter Plan of Treatment Not on file documented as of this encounter Visit Diagnoses Not on filedocumented in this encounter Care Teams Magazine Feeder Relationship Specialty Start Date End Date Lucille Boss ANP [address] [place] [address] PCP - General Family Medicine 11/27/22 Angelika Renteria [address] 3rd [place] [address] Cardiology 10/07/24 ao Gastroenterology 09/29/24 10/06/24 documented as of this encounter
--- OUTSIDE RECORDS SUMMARY | 2024-12-26 08:36 | XMS_ITS | Encounter Summary ---
Author Organization [employer] Address [address] [facility] 7t [place] [address] Care Team Providers Care Cleaner Window Name Role Phone Lucille Boss ANP Primary Care Provider [phone] Sae Renterian Unavailable Reason for Visit * Reason Onset Date Comments Nurse Triage 06/07/2023 Encounter Details Date Type Department Care Team ([facility] Contact Info) Description 06/07/2023 Telephone [facility] MEDICINE [address] [place] [address] Lucille Boss ANP [address] [place] [address] Nurse Triage Social History Tobacco Use Types [...] 06/07/2023 4:11 PM EDT Triage call with [employer] Dining Services Director ID [id number] Pt has been seen in office 05/16/23 [...] assistive device. Advised Pt to come to [facility] tomorrow morning to be seen by provider [...] The caller accepted this outcome Patient speaks panamanian documented in this encounter Plan of Treatment Not on file documented as of this encounter Visit Diagnoses Not on filedocumented in this encounter Care Teams Cleaner Window Relationship Specialty Start Date End Date Lucille Boss ANP [address] [place] [address] PCP - General Family Medicine 11/27/22 Angelika Renteria [address] [place] [address] [address] [place] [address] Cardiology 10/07/24 [facility] Gastroenterology 09/29/24 10/06/24 documented as of this encounter
--- OUTSIDE RECORDS SUMMARY | 2024-12-26 08:36 | XMS_ITS | Encounter Summary ---
Author Organization [employer] Address [address] [facility] 7t [place] [address] Care Team Providers Care Exercise Physiology Professor Name Role Phone Lucille Boss Primary Care Provider [phone] Sae Renterian Unavailable Reason for Visit * Reason Onset Date Comments Results 12/11/2022 Encounter Details Date Type Department Care Team ([facility] Contact Info) Description 12/11/2022 Telephone [facility] MEDICINE [address] [place] [address] Lucille Boss ANP [address] [place] [address] Results Social History Tobacco Use Types Packs/Day [...] of right shoulder. Please contact pt at [phone] documented in this encounter Plan of Treatment Not on file documented as of this encounter Visit Diagnoses Not on filedocumented in this encounter Care Teams Exercise Physiology Professor Relationship Specialty Start Date End Date Lucille Boss ANP [address] [place] [address] PCP - General Family Medicine 11/27/22 Angelika Renteria [address] [place] [address] 3rd [place] [address] Cardiology 10/07/24 ao Gastroenterology 09/29/24 10/06/24 documented as of this encounter
--- OUTSIDE RECORDS SUMMARY | 2024-12-26 08:37 | XMS_ITS | Encounter Summary ---
Author Organization [employer] Address [address] 7t [place] [address] Care Team Providers Care Detail Drafter Name Role Phone Lucille Boss Primary Care Provider [phone] Sae Renterian Unavailable Reason for Visit * Reason Comments Med Refill Encounter Details Date Type Department Care Team ([facility] Contact Info) Description 12/08/2024 Refill [facility] MEDICINE [address] [place] [address] Lucille Boss ANP [address] [place] [address] Insomnia, unspecified type Social History Tobacco Use Types Packs/Day Years [...] documented as of this encounter Visit Diagnoses Diagnosis Insomnia, unspecified type documented in this encounter Additional Health Concerns Assessment Noted Time PHQ-9 Depression Total Score: 5 03/06/20 24 3:25 PM EDT documented as of this encounter Care Teams Detail Drafter Relationship Specialty Start Date End Date Lucille Boss ANP [address] [place] [address] PCP - General Family Medicine 11/27/22 Angelika Renteria [address] [place] [address] 3rd [place] [address] Cardiology 10/07/24 documented as of this encounter
--- OUTSIDE RECORDS SUMMARY | 2024-12-26 08:37 | XMS_ITS | Encounter Summary ---
Author Organization [employer] Address [address] 7t [place] [address] Care Team Providers Care Office Coordinator Name Role Phone Lucille Boss Primary Care Provider [phone] Angelika Renteria Unavailable Reason for Visit * Reason Comments Med Refill Encounter Details Date Type Department Care Team ([facility] Contact Info) Description 07/01/2023 Refill [facility] [address] [place] [address] Taryn Gleason MD 230 [place], [place] [phone] Social History Tobacco Use Types Packs/Day Years [...] on filedocumented in this encounter Care Teams Office Coordinator Relationship Specialty Start Date End Date Lucille Boss ANP [address] [place] [address] PCP - General Family Medicine 11/27/22 Angelika Renteria [address]rd [place] [address] Cardiology 10/07/24 ao Gastroenterology 09/29/24 10/06/24 documented as of this encounter
--- OUTSIDE RECORDS SUMMARY | 2024-12-26 08:37 | XMS_ITS | Encounter Summary ---
Author Organization [employer] Address [address]t [place] [address] Care Team Providers Care Aoc Director Combat Operations Officer Name Role Phone Lucille Boss MIN Primary Care Provider [phone] Myra, Angelika Unavailable Reason for Visit * Reason Onset Date Comments appt 08/13/2024 Encounter Details Date Type Department Care Team ([facility] Contact Info) Description 08/13/2024 Telephone [facility] [address] [place] [address] Erik Garcia, DMD [address] [place] [address] appt Social History Tobacco Use Types Packs/Day [...] documented as of this encounter Care Teams Aoc Director Combat Operations Officer Relationship Specialty Start Date End Date Lucille Boss ANP [address] [place] [address] PCP - General Family Medicine 11/27/22 Angelika Renteria [address] [place] [address] 3[address] [place] [address] Cardiology 10/07/24 g[facility]i Gastroenterology 09/29/24 10/06/24 documented as of this encounter
--- OUTSIDE RECORDS SUMMARY | 2024-12-26 08:37 | XMS_ITS | Clinical Summary ---
Author Organization [employer] Address [address] [facility] 7t [place] [address] Care Team Providers Care Fudger Name Role Phone Lucille Boss MIN Primary Care Provider [phone] Angelika Renteria Unavailable Allergies No known active allergies Medications nitroglycerin (Nitrostat) 0.[address] 1 TABLET UNDER TONGUE EVERY 5 MIN NEEDED FOR CHEST PAIN, MAX OF 3 DOSES/15 MIN CALL 911/SEEK MEDICAL ATTENTION IF PAIN PERSISTS 90 tablet 023 Active Additional Information Patient not taking.Reported on 03/06/2024 Acetaminophen Extra Strength 500 MG tabletIndications :Numbness of both lower extremities TAKE 2 TABLETS (1,000 MG) BY MOUTH IF NEEDED IN THE MORNING AND AT BEDTIME FOR MILD PAIN. 30 tablet 1 024 Active aspirin (Aspirin Low Dose) 81 MG EC tablet TAKE 1 TABLET BY MOUTH EVERY DAY 90 tablet 1 024 Active metFORMIN XR (Glucophage-XR) 500 MG 24 hr tablet TAKE 1 TABLET BY MOUTH EVERY MORNING 90 tablet 1 025 Active metroNIDAZOLE (Metrogel) 0.75 % gelIndications:Ro dusty Apply a thin film to face twice daily, morning and evening, to entire affected areas after washing. 45 g 2 025 Active ticagrelor (Brilinta) 90 MG tabletIndications :Coronary artery disease involving [place] heart without angina pectoris, unspecified vessel or lesion type TAKE 1 TABLET BY MOUTH TWICE DAILY 180 tablet 1 025 Active empagliflozin (Jardiance) 10 MGIndications:Typ e 2 diabetes mellitus with hyperlipidemia (CMS/HCC) (CMS/HCC) Take 1 tablet (10 mg) by mouth Once per day. 90 tablet 3 025 2025 Active doxylamine ([employer] Sleep-Aid, Doxylamine,) 25 MG tabletIndications :Insomnia, unspecified type TAKE 1/2-1 TABLET BY MOUTH AT BEDTIME IF NEEDED FOR INSOMNIA 30 tablet 1 025 Active lisinopril 5 MG tablet TAKE 1 TABLET BY MOUTH EVERY MORNING 90 tablet 1 025 Active carvedilol (Coreg) 3.125 MG tablet TAKE 1 TABLET BY MOUTH TWICE A DAY 180 tablet 1 025 Active atorvastatin (Lipitor) 80 MG tablet TAKE 1 TABLET BY MOUTH EVERY EVENING 90 tablet 1 025 Active carvedilol (Coreg) 3.125 MG tablet TAKE 1 TABLET BY MOUTH TWICE A DAY 180 tablet 1 024 2024 Discontinued atorvastatin (Lipitor) 80 MG tablet TAKE 1 TABLET BY MOUTH AT BEDTIME 90 tablet 1 024 2024 Discontinued lisinopril 5 MG tablet TAKE 1 TABLET BY MOUTH EVERY MORNING 90 tablet 1 024 2024 Discontinued doxylamine ([employer] Sleep-Aid, Doxylamine,) 25 MG tabletIndications :Insomnia, unspecified type TAKE 1/2-1 TABLET BY MOUTH AT BEDTIME IF NEEDED FOR INSOMNIA 30 tablet 1 024 2024 Discontinued Active Problems Problem Noted Date Diagnosed Date ST elevation myocardial infa rction involving left anterior descending (LAD) coronary artery 05/04/2023 Overview (11/21/2024): With drug-eluting stent placed 03/03/2023 Follows with [facility] cardiology Class 2 obesity 04/04/2023 Type 2 [...] (03/09/2023 12:02 PM EDT): Pt w recent GA - LAD 95% stenosis and 30 % stenosis of Lcx ,Had #1 DELL in LAD. -echo showed severe wall akinesis and EF 25-30% -continue current Carvedilol,Lisinopril,SL nitrog,prn,brillinta,ASA, atorvastatin to 80 mg daily. -pt has apt scheduled already w cards -per pharmacy x 03/2023 and per pt in 04/2023 --Advised pt to call rn endoscopy 'office to confirm date of apt -refilled [...] referral but hold x now w recent GA -alarm signs and symptoms discussed Ischemic cardiomyopathy 03/09/2023 Assessment & Plan (03/09/2023 12:06 PM EDT): Pt w recent GA - LAD 95% stenosis and 30 % [...] diet and exercise,discussed healthy life style -discussed enamel sprayer referral --referred today Paresthesia of both feet [...] Encounters Date Type Department Care Team Description 12/23/2024 Refill [facility] [address] [place] [address] Lucille Boss ANP 12/18/2024 Telephone [facility] [address] [place], [place] [phone] Lucille Boss ANP No Show 12/16/2024 Telephone [facility] [address] [place], [place] [phone] Lucille Boss ANP Nurse Triage 12/08/2024 Refill [facility] [place] [address] Lucille Boss ANP Insomnia, unspecified type 11/21/2024 2:30 PM EST Office Visit [facility] [place] [address] Lucille Boss ANP Rosacea (Primary Dx); Type 2 diabetes mellitus with hyperlipidemia ([facility]/HCC) ([facility]); Umbilical hernia without obstruction and without gangrene; Paresthesia of both feet; Coronary artery disease involving [place] heart without angina pectoris, unspecified vessel or lesion type; ST elevation myocardial infarction involving left anterior descending (LAD) coronary artery ([facility]) 11/21/2024 Telephone [facility] [place] [address] Mavis Beltrán RN Medication Question 11/21/2024 Travel 11/20/2024 Telephone [facility] [place] [address] Beulah Emanuel MA chart prep 11/10/2024 Patient Outreach [facility] [place] [address] Lucille Boss ANP Pre-visit Planning (SDOH screening negative and Tobacco screening negative) 10/30/2024 Refill [facility] [place] [address] Lucille Boss ANP 10/07/2024 Orders Only [facility] [place] [address] Lucille Boss ANP 10/07/2024 Refill [facility] [place] [address] Lucille Boss ANP Insomnia, unspecified type 09/30/2024 Refill [facility] [place] [address] Lucille Boss ANP 09/28/2024 Refill [facility] [place] [address] Lucille Boss ANP from Last 3 Months [...] PCV) 12/14/2019 12/13/2018 COVID-19 Vaccine ( - season) 2024 Influenza Vaccine (#1) 2024 Diabetes: Hemoglobin A1C 02/18/2025 025, 03/06/2024, 12/12/2023, Additional history exists Depression Screening 03/06/2025 03/06/2024, 03/06/20 24 Diabetes: Urine Protein Screening 04/26/2025 04/26/2024, 08/04/2022 Lipid Panel 04/26/2025 04/26/2024, 0701/2023, 08/04/2022 Diabetes: Foot Exam 07/09/2025 07/09/2024 SDOH [...] complication, without long-term current use of insulin (CMS/HCC) ALBUMIN, RANDOM URINE W/CREATININE Routine 04/26/2024 10:00 AM EDT Type 2 diabetes mellitus without complication, without long-term current use of insulin (CMS/HCC) ZZZ HISTORICAL HEPATITIS C AB W/REFL TO [...] Expiration Date Blood 11/21/2024 2:40 PM EST Lucille COPELAND POINT OF CARE TEST ENTER/EDIT OR DERABLES Final Result * POCT Glucose (11/21/2024 2:39 PM EST) Glucose Blood, POC 159 60 - 200 mg/dL QC Media Lot # [id number] Lot# Expiration Date Blood Capillary blood specimen / Unknown 11/21/2024 2:39 PM EST Lucille COPELAND POINT OF CARE TEST ENTER/EDIT OR DERABLES Final Result * (ABNORMAL) Lipid Panel, Standard (04/26/2024 10:01 AM EDT) Triglycerides 42 <150 mg/dL [facility] Comment:Desirable Triglyceri de: less than 150 mg/dLBorderline High Triglyceride 150-199 mg/dLHigh Triglyceride: 200-499 mg/dLVery High Triglyceride: greater than or equal to 5OO mg/dL Cholesterol 98 <200 mg/dL [facility] Comment:Desirable Cholestero l: less than 200 mg/dLBorderline High Cholesterol: 200-239 mg/dLHigh Cholesterol: greater than 239 mg/dL LDL Cholesterol Calculated 56 <100 mg/dL [facility] Comment:Desirable LDL: less than 100 mg/dLNear Optimal/Above Optimal LDL: 110- 129 mg/dLBorderline High LDL: 130-159 mg/dLHigh LDL: 160-189 mg/dLVery High LDL: greater than or equal to 190 mg/dL HDL Cholesterol 34(L) >40 mg/dL [facility] Comment:Desirable HDL: great er than 40 mg/dL Note: This HDL assay may give artificially low results in patients with liver disease. Blood Venous blood specimen / Unknown 04/26/2024 10:01 AM EDT 04/26/2024 10:01 AM EDT Kingsley Luong MD LAB BLOOD ORDERABLES Final Resul t Performing Organization Address [facility] Co de Phone Number [facility] [address] [place] [address] [phone] * Albumin, Random Urine W/Creatinine (04/26/2024 10:00 AM EDT) Creatinine, Urine 110.97 mg/dL [facility] Microalbumin Urine <5.0 mg/L [facility] Microalbum Creatinine Ratio Ur TNP <30 ug/mg cr [facility] Comment:Unable to calculate albumin/creatinine ratio due to lowmicroalbumin or creatinine result. Urine (Urine, Random) 04/26/2024 10:00 AM EDT 04/26/2024 11:51 AM EDT Kingsley Luong MD LAB URINE ORDERABLES Final Resul t Performing Organization Address [facility] de Phone Number [facility] [address] [place] [address] [phone] * HEPATITIS C AB W/REFL TO [...] a test for HCV RNA (test code 14311) is suggested. ?? For additional information please refer to http://education.[employer]/faq/NJC68g2 (This link is being provided for informational/ educational purposes only.) ?? 08/04/2022 4:18 PM EDT Lucille Boss ANP HISTORICAL/NON ORDERABLE LABS Fi nal Result Performing Organization Address [facility] Co de Phone Number CONVERTED LEGACY [...] ? For additional information please refer to http://Digitiliti.CitiLog[employer]/faq/PDB878 (This link is being provided for informational/ educational purposes only.) ? The performance of this assay has not been clinically validated in patients less than 2 years old. ?? 08/04/2022 4:18 PM EDT [facility] LAB BLOOD ORDERABLES Final Resul t CONVERTED LEGACY LABS from Last 3 Months or Most Recently Relevant to Health Maintenance Insurance [facility]SN [employer]IAL [facility]LY [facility] Care Teams Fudger Relationship Specialty Start Date End Date Lucille Boss ANP [address] [place] [address] PCP - General Family Medicine 11/27/22 Angelika Renteria [address] [place] [address] 3rd [place] [address] Cardiology 10/07/24
--- OUTSIDE RECORDS SUMMARY | 2024-12-26 08:37 | XMS_ITS | Encounter Summary ---
Author Organization [employer] Address [address] 7t [place] [address] Care Team Providers Care Manager Fine Dining Name Role Phone Lucille Boss Primary Care Provider [phone] Sae Renterian Unavailable Reason for Visit * Reason Comments Med Refill Encounter Details Date Type Department Care Team ([facility] Contact Info) Description 09/28/2024 Refill [facility] [address] [place], [place] [phone] Lucille Boss ANP [address] [place] [address] Social History Tobacco Use Types Packs/Day Years [...] documented as of this encounter Care Teams Manager Fine Dining Relationship Specialty Start Date End Date Lucille Boss ANP [address] [place] [address] PCP - General Family Medicine 11/27/22 Angelika Renteria [address] [place] [address] 3rd [place] [address] Cardiology 10/07/24 ao Gastroenterology 09/29/24 10/06/24 documented as of this encounter
--- OUTSIDE RECORDS SUMMARY | 2024-12-26 08:37 | XMS_ITS | Encounter Summary ---
Author Organization [employer] Address [address] [facility] 7t [place] [address] Care Team Providers Care Store Host Name Role Phone Lucilel Boss MIN Primary Care Provider [phone] Angelika Renteria Unavailable Reason for Visit * Reason Comments Med Refill Encounter Details Date Type Department Care Team ([facility] Contact Info) Description 09/10/2023 Refill [facility] [address] [place] [address] Marie Doan MD [address] [place] [address] Social History Tobacco Use Types Packs/Day Years [...] t he electric, gas, oil or water [employer] threatened to shut off services in your [...] on filedocumented in this encounter Care Teams Store Host Relationship Specialty Start Date End Date Lucille Boss ANP [address] [place] [address] PCP - General Family Medicine 11/27/22 Angelika Renteria [address] [place] [address] 3rd [place] [address] Cardiology 10/07/24 ao Gastroenterology 09/29/24 10/06/24 documented as of this encounter
--- OUTSIDE RECORDS SUMMARY | 2024-12-26 08:37 | XMS_ITS | Encounter Summary ---
Author Organization [employer] Address [address] [facility] [address] [facility] [address] 7t [place] [address] Care Team Providers Care Orthophotography Technician Name Role Phone Lucille Boss Primary Care Provider [phone] Sae Renterian Unavailable Reason for Visit * Reason Onset Date Comments Nurse Triage 12/16/2024 Encounter Details Date Type Department Care Team ([facility] Contact Info) Description 12/16/2024 Telephone [facility] [address] [place] [address] Lucille Boss ANP [address] [place] [address] Nurse Triage Social History Tobacco Use Types [...] encounter Miscellaneous Notes * Telephone Encounter - Erica Sharif RN - 12/16/2024 12:53 PM EST called pt to triage, spoke to pt. through [employer] Administrator. pt states pain in neck, back, and right arm for several weeks. pt also reports that the back pain travels into his left leg with a feeling of pressure/heaviness in the leg. pt denies known injury, previous history, inability to stand or walk, recent illness symptoms, or other associated symptoms. given appt with PCP at 11:30 for exam. advised home care: rest, fluids, ice, heat, OTC pain reliever as needed, and call back if worsening or new concerns. pt understands and agrees with plan. insurance verified. Protocol Used: Back Pain (Adult) Protocol-Based Disposition: See in Office or Video Visit within 3 Days Video visit offer not recorded Positive Triage Questions: * Moderate back pain (e.g., interferes with normal activities) and present > 3 days * Pain radiates into the thigh or further down the leg * All higher-acuity triage questions were negative Care Advice Discussed: * Reassurance and Education - Back Pain * Cold or Heat * Sleep * Continue Activity * Pain Medicines * Reasons To Call Back - Fever occurs - Numbness or weakness occurs - Loss of control of your bladder or bowel - Severe pain not better after taking pain medicines - Pain begins to shoot into the leg - Pain lasts over 2 weeks - Pain becomes worse - You become worse * Telephone Encounter - Wendy Randall - 12/16/2024 11:59 AM EST Symptoms: Back Pain - Not From Injury, Neck Pain - Not From Injury, Arm Pain - Not From Injury (pt states feels pressure in his left leg) Outcome: Schedule an urgent appointment (within 4 hours) or talk to a nurse or provider soon Reason: Started within the past 3 days The caller accepted this outcome. [phone] [email or web address] documented in this encounter Plan of Treatment Not on file documented as of this encounter Visit Diagnoses Not on filedocumented in this encounter Additional Health Concerns Assessment Noted Time PHQ-9 Depression Total Score: 5 03/06/20 24 3:25 PM EDT documented as of this encounter Care Teams Orthophotography Technician Relationship Specialty Start Date End Date Lucille Boss ANP [address] [place] [address] PCP - General Family Medicine 11/27/22 Angelika Renteria [address] [place] [address] 3rd [place] [address] Cardiology 10/07/24 documented as of this encounter
--- OUTSIDE RECORDS SUMMARY | 2024-12-26 08:37 | XMS_ITS | Encounter Summary ---
Author Organization [employer] Address [address] 7t [place] [address] Care Team Providers Care Trainer Name Role Phone Lucille Boss MIN Primary Care Provider [phone] Angelika Renteria Unavailable Reason for Visit * Reason Onset Date Comments prophy appt 07/30/2023 Encounter Details Date Type Department Care Team ([facility] Contact Info) Description 07/30/2023 Telephone [facility] [address] [place] [address] MissaelLouisSabina [address] [place] [address] prophy appt Social History Tobacco Use Types [...] on filedocumented in this encounter Care Teams Trainer Relationship Specialty Start Date End Date Lucille Boss ANP [address] [place] [id number] PCP - General Family Medicine 11/27/22 Angelika Renteria [address] [place] [address] 3rd [place] [address] Cardiology 10/07/24 ao Gastroenterology 09/29/24 10/06/24 documented as of this encounter
--- OUTSIDE RECORDS SUMMARY | 2024-12-26 08:37 | XMS_ITS | Encounter Summary ---
Author Organization [email or web address] Address [address] [facility] [address] 7t [place] [address] Care Team Providers Care Gambling Floor Supervisor Name Role Phone Lucille Boss Primary Care Provider [phone] Sae Renterian Unavailable Reason for Visit * Reason Comments Med Refill Encounter Details Date Type Department Care Team ([facility] Contact Info) Description 09/02/2024 Refill [facility] [address] [place], [place] [phone] Lucille Boss ANP [address] [place] [address] Social History Tobacco Use Types Packs/Day Years [...] documented as of this encounter Care Teams Gambling Floor Supervisor Relationship Specialty Start Date End Date Lucille Boss ANP [address] [place] [address] PCP - General Family Medicine 11/27/22 Angelika Renteria [address] [place] [address] 3rd [place] [address] Cardiology 10/07/24 ao Gastroenterology 09/29/24 10/06/24 documented as of this encounter
--- OUTSIDE RECORDS SUMMARY | 2024-12-26 08:37 | XMS_ITS | Encounter Summary ---
Author Organization [employer] Address [address] [facility] 7t [place] [address] Care Team Providers Care Supervisor Computer Operations Name Role Phone Lucille Boss Primary Care Provider [phone] Angelika Renteria Unavailable Reason for Visit * Reason Comments Med Refill Encounter Details Date Type Department Care Team ([facility] Contact Info) Description 07/08/2023 Refill [facility] [address] [place] [address] Taryn Gleason MD [address] [place] [address] Social History Tobacco Use Types Packs/Day Years [...] on filedocumented in this encounter Care Teams Supervisor Computer Operations Relationship Specialty Start Date End Date Lucille Boss ANP [address] [place] [address] PCP - General Family Medicine 11/27/22 Angelika Renteria [address] 3rd Floor [place] [address] Cardiology 10/07/24 ao Gastroenterology 09/29/24 10/06/24 documented as of this encounter
--- OUTSIDE RECORDS SUMMARY | 2024-12-26 08:37 | XMS_ITS | Encounter Summary ---
Author Organization [employer] Address [address] [facility] [address] [facility] [address]t [place] [address] Care Team Providers Care Land Lease Information Clerk Name Role Phone Lucille Boss Primary Care Provider [phone] Sae Renterian Unavailable Reason for Visit * Reason Onset Date Comments No Show 12/18/2024 Encounter Details Date Type Department Care Team ([facility] Contact Info) Description 12/18/2024 Telephone [facility] [address] [place], [place] [phone] Lucille Boss ANP [address] [place] [address] No Show Social History Tobacco Use Types Packs/Day Years [...] encounter Miscellaneous Notes * Telephone Encounter - Dolores Zafar - 12/18/2024 1:10 PM EST Patient no showed to sick on site on 12/18/2024. documented in this encounter Plan of Treatment Not on file documented as of this encounter Visit Diagnoses Not on filedocumented in this encounter Additional Health Concerns Assessment Noted Time PHQ-9 Depression Total Score: 5 03/06/20 24 3:25 PM EDT documented as of this encounter Care Teams Land Lease Information Clerk Relationship Specialty Start Date End Date Lucille Boss ANP [address] [place] [address] PCP - General Family Medicine 11/27/22 Angelika Renteria [address] [place] [address] 3[address] [place] [address] Cardiology 10/07/24 documented as of this encounter
--- OUTSIDE RECORDS SUMMARY | 2024-12-26 08:37 | XMS_ITS | Encounter Summary ---
Author Organization [employer] Address [address] [facility] [facility] [address] 7t [place] [address] Care Team Providers Care Respiratory Clinician Name Role Phone Lucille Boss Primary Care Provider [phone] Sae Renterian Unavailable Reason for Visit * Reason Comments Med Refill Encounter Details Date Type Department Care Team ([facility] Contact Info) Description 12/23/2024 Refill [facility] [address] [place] [address] Lucille Boss ANP [address] [place] [address] Social History Tobacco Use Types Packs/Day Years [...] documented as of this encounter Care Teams Respiratory Clinician Relationship Specialty Start Date End Date Lucille Boss ANP [address] [place] [address] PCP - General Family Medicine 11/27/22 Angelika Renteria [address] [place] [address] 3rd [place] [address] Cardiology 10/07/24 documented as of this encounter
== END 2024-12-26 09:06 | disposition home or self-care (01) ==
LOC: HO.HCS 08:24
PROVIDERS: PCP Internal Medicine; Visit Provider Nurse Practitioner Family
DX: I25.10 Atherosclerotic heart disease of native coronary artery without angina pectoris (principal); Z95.5 Presence of coronary angioplasty implant and graft; I25.5 Ischemic cardiomyopathy; Z98.890 Other specified postprocedural states; E78.5 Hyperlipidemia, unspecified; Z01.810 Encounter for preprocedural cardiovascular examination
CPT/HCPCS: 93010; 99214; G2211

== ENCOUNTER → 2024-12-26 08:23 | Outpatient (BNVA) | payer OTHER, SELFPAY | PROVIDERS: PCP Internal Medicine; Visit Provider Nurse Practitioner Family | DX: Z01.810 Encounter for preprocedural cardiovascular examination (principal); I25.10 Atherosclerotic heart disease of native coronary artery without angina pectoris; I25.5 Ischemic cardiomyopathy; E78.5 Hyperlipidemia, unspecified; Z98.890 Other specified postprocedural states; Z95.5 Presence of coronary angioplasty implant and graft; R00.1 Bradycardia, unspecified | CPT/HCPCS: 93005; 99212 ==

== ENCOUNTER 2025-01-16 10:17 | Day surgery (SDC) | payer OTHER, SELFPAY ==
[2025-01-08 10:23] VITALS: BP 134/65; PULSE 76; RESP 16; O2SAT 96; BMI 35.7
--- NOTE | 2025-01-08 10:37 | HO.ANESPROP2 ---
Documented by User: Sujatha Grant NP 01/14/25 14:47 HPI - Anesthesia Eval Consult details Narrative: 59yo M for Hernia Umbilical Incarcerated with mesh Cardiac optimized. Follows [facility] Cardiology for: CAD s/p anterior STEMI with stent 02/2023 (severe proximal LAD stenosis). Ischemic CMP at that time with recovered EF now. Brillinta/asa - ok to hold brillinta, prefer to continue asa No recent illness No CP/SOB with work on feet all day DM: Does not check POC at home. A1C 6.6 11/2024 [facility] Active Problems Active Problems: All Active Problems Preop cardiovascular exam (Acute) Hyperlipidemia (Acute) Stented coronary artery (Acute) CAD (coronary artery disease) (Acute) Incarcerated umbilical hernia (Acute) Stable angina (Acute) Ischemic cardiomyopathy (Acute) History of cardiac cath (Acute) Past Medical History Medical History (Updated 01/08/25 @ 10:17 by Belen Parikh RN) Back pain Prediabetes On anticoagulant therapy Obesity Umbilical hernia Shoulder pain, right Paresthesia of both feet Ischemic cardiomyopathy Diabetes Myocardial infarction Family History Family History Mother No problems noted. Father No problems noted. Family history of problems with anesthesia: No Surgical History Surgical History (Updated 01/08/25 @ 10:17 by Belen Parikh RN) H/O colonoscopy History of coronary artery stent placement History of cardiac cath History of Problems with Anesthesia: No Social History Social History Are you a primary floor care specialist to a significant other at home: No Do you presently have visiting nurse or other home services: No Alcohol intake: never Patient Tobacco Use Status: Never used Tobacco Use of substances other than those prescribed or required for medical reasons: No Have you been hit, kicked, punched, or otherwise hurt by someone within the past year? If so, by whom?: No Are you DNR?: No Advance Directives: No Advance Directives Information Provided: Yes Advance Directives on File: No Recently lost weight without trying: No Eating poorly because of decreased appetite: No Nutrition Risks: No Nutritional Risk Poor oral hygiene: Yes (three missing teeth) Meds Allergies Allergy/AdvReac Type Severity Reaction Status Date / Time No Known Allergies Allergy Verified 01/16/25 10:33 Home Medications ?Medication ?Instructions ?Recorded ?Confirmed ?Last Taken ?Type atorvastatin 80 mg tablet 80 mg PO DAILY@1700 03/06/23 01/08/25 Unknown History carvedilol 3.125 mg tablet 3.125 mg PO BID 03/06/23 01/08/25 01/16/25 History metformin 500 mg tablet,extended 500 mg PO DAILY 03/06/23 01/08/25 Unknown History release 24 hr nitroglycerin 0.4 mg sublingual 0.4 mg sublingual USEASDIRECTD PRN 03/06/23 01/08/25 Unknown History tablet Chest Pain aspirin 81 mg tablet,delayed 81 mg PO DAILY 12/26/24 01/16/25 01/09/25 History release acetaminophen 325 mg tablet 650 mg PO Q6H PRN Pain 01/08/25 01/08/25 Unknown History Exam Height,Weight and Vital Signs: Height 5 ft 8 in Weight 106.594 kg Last Vital Signs Pulse 76 01/08/25 10:23 Resp 16 01/08/25 10:23 BP 134/65 01/08/25 10:23 Pulse Ox 96 01/08/25 10:23 O2 Del Method Room Air 01/08/25 10:23 Pertinent Lab Results Pertinent Lab Results: Lab Results 01/08/25 Range/Units 11:06 WBC 6.4 (4.8-10.8) X10*3/uL RBC 5.37 (4.60-5.80) X10*6/uL Hgb 15.6 (14.0-18.0) g/dl Hct 46.6 (42.0-52.0) % MCV 86.8 (80.0-98.0) fL MCH 29.1 (27.0-33.0) pg MCHC 33.5 (31.0-36.0) g/dl RDW 12.9 (11.0-16.0) % Plt Count 213 (160-400) X10*3/uL MPV 9.9 (9.4-12.4) fL Absolute Nucleated RBC 0.000 (0.0-0.012) X10*3/uL Nucleated RBC % (auto) 0.0 (0.0-0.2) /100WBC Sodium 139 (135-145) mmol/L Potassium 4.2 (3.3-5.1) mmol/L Chloride 107 (96-108) mmol/L Carbon Dioxide 25 (22-29) mmol/L Anion Gap 11 L (12-20) BUN 24 H (9-16) mg/dL Creatinine 1.04 (0.5-1.4) mg/dL Estim Creat Clear Calc 90.5 Estimated GFR > 60 Random Glucose 97 (60-115) mg/dL Calcium 9.7 D (8.4-10.2) mg/dL Narrative Narrative: EKG 12/2024 SB @ 59 ECHO 11/2024 Conclusions: - The left ventricular systolic function is low normal. The visually estimated ejection fraction is between 50-55%. - The basal anteroseptal and mid anteroseptal segments are hypokinetic. Airway Mallampati Class: III TM Dist: >3cm Neck ROM: Full Loose/Missing/Broken Teeth: Yes (3 x missing) Heart: RRR Lungs: CTAB Assessment and Plan Assessment Anesthesia Assessment: Anesthesia Plan Discussed and PAT Visit Final Anesthetic Review Family History of Problems with Anesthesia: No History of Problems with Anesthesia: No Documented by User: Charla Cardenas MD 01/16/25 12:38 [facility] Past Medical History Medical History (Updated 01/08/25 @ 10:17 by Belen Parikh RN) Back pain Prediabetes On anticoagulant therapy Obesity Umbilical hernia Shoulder pain, right Paresthesia of both feet Ischemic cardiomyopathy Diabetes Myocardial infarction Family History Family History Mother No problems noted. Father No problems noted. Surgical History Surgical History (Updated 01/08/25 @ 10:17 by Belen Parikh, RN) H/O colonoscopy History of coronary artery stent placement History of cardiac cath Social History Social History Are you a primary floor care specialist to a significant other at home: No Do you presently have visiting nurse or other home services: No Alcohol intake: never Patient Tobacco Use Status: Never used Tobacco Use of substances other than those prescribed or required for medical reasons: No Have you been hit, kicked, punched, or otherwise hurt by someone within the past year? If so, by whom?: No Are you DNR?: No Advance Directives: No Advance Directives Information Provided: Yes Advance Directives on File: No Recently lost weight without trying: No Eating poorly because of decreased appetite: No Nutrition Risks: No Nutritional Risk Poor oral hygiene: Yes (three missing teeth) Meds Allergies Allergy/AdvReac Type Severity Reaction Status Date / Time No Known Allergies Allergy Verified 01/16/25 10:33 Home Medications ?Medication ?Instructions ?Recorded ?Confirmed ?Last Taken ?Type atorvastatin 80 mg tablet 80 mg PO DAILY@1700 03/06/23 01/08/25 Unknown History carvedilol 3.125 mg tablet 3.125 mg PO BID 03/06/23 01/08/25 01/16/25 History metformin 500 mg tablet,extended 500 mg PO DAILY 03/06/23 01/08/25 Unknown History release 24 hr nitroglycerin 0.4 mg sublingual 0.4 mg sublingual USEASDIRECTD PRN 03/06/23 01/08/25 Unknown History tablet Chest Pain aspirin 81 mg tablet,delayed 81 mg PO DAILY 12/26/24 01/16/25 01/09/25 History release acetaminophen 325 mg tablet 650 mg PO Q6H PRN Pain 01/08/25 01/08/25 Unknown History Assessment and Plan Final Anesthetic Review NPO: Yes ASA Class: II Final Preanesthetic Review: No Changes in Pt Med Stat, Meds/Allgs Chart Reviewed and Consent Obtained/Reviewed Patient Risk: Low Procedure Risk: Low Anesthetic Plan Anesthetic Plan: MAC: Disposition: Standard PACU
[2025-01-08 11:37] LABS: Hematocrit 46.6 % (42.0-52.0); Hemoglobin 15.6 g/dl (14.0-18.0); Mean Corpuscular HGB Conc 33.5 g/dl (31.0-36.0); Mean Corpuscular Hemoglobin 29.1 pg (27.0-33.0); Mean Corpuscular Volume 86.8 fL (80.0-98.0); Mean Platelet Volume 9.9 fL (9.4-12.4); Platelet Count 213 X10*3/uL (160-400); Red Blood Count 5.37 X10*6/uL (4.60-5.80); Red Cell Distribution Width 12.9 % (11.0-16.0); White Blood Count 6.4 X10*3/uL (4.8-10.8)
[2025-01-08 11:56] LABS: Anion Gap 11 (12-20); Blood Urea Nitrogen 24 mg/dL (9-16); Calcium 9.7 mg/dL (8.4-10.2); Carbon Dioxide 25 mmol/L (22-29); Chloride 107 mmol/L (96-108); Creatinine Clr Calc Pharmacy 90.5; Estimated Glomerular Filt Rate > 60; Glucose Random 97 mg/dL (60-115); Potassium 4.2 mmol/L (3.3-5.1); Sodium 139 mmol/L (135-145)
--- NOTE | 2025-01-15 13:07 | MHC.SHP ---
Pre-Procedural Eval Section A - 24 Hr Update-Section A only Date of Service: 01/16/25 The patient is an INPATIENT: No Changes since office visit: No Cold of Flu in the past 2 weeks, No New Medical Problems, No Changes in Medication and No Patient answered all questions Section B - Complete if H&P > 30 days Chief Complaint: Umbilical hernia with obstruction, without gangren Allergies: Allergies Allergy/AdvReac Type Severity Reaction Status Date / Time No Known Allergies Allergy Verified 12/08/24 09:58 Review of Systems Sugical H&P ROS: Negative: Constitution, Cardiovascular, Respiratory, Neurological, Psychiatric, Hem-Onc, Allergic/Immunologic, Gastrointestinal, Genitourinary, Musculoskeletal, Integumentary, Endocrine and Eyes/Ears/Nose/Throat Exam Surgical H&P Exam: Normal: HEENT, Normal: Heart, Normal: Lungs, Normal: Extremities, Normal: Abdomen, Normal: Skin and Normal: Neurological Plan I have reviewed the history and physical and performed a pertinent physical examination on my patient. No changes have occurred unless specified. Time Spent With Patient Time: Total time managing care of this patient today ____ minutes.
[2025-01-16 10:45] VITALS: BP 137/74; PULSE 66; RESP 14; TEMP 36.6; O2SAT 97
[2025-01-16] MEDS: Lactated Ringers 1,000 ML 100 ML IVCONT (10:58)
[2025-01-16 11:45] LABS: Glucose, Whole Blood 110 mg/dL (60-115)
[2025-01-16 13:47] VITALS: BP 105/48; PULSE 80; RESP 18; TEMP 36.6; O2SAT 94
--- NOTE | 2025-01-16 13:53 | W.PM.OPN ---
Operative Note Operative Note Date of Service: 01/16/25 Narrative: Preoperative diagnosis: [] Large incarcerated umbilical hernia Postop diagnosis: [] The same Procedure [] repair of incarcerated umbilical hernia with Bard mesh Surgeon: [] Selvin Full Stack Software Engineer: [] Cruz Type of Anesthesia: []mac Indication for surgery: []Sx ,enlarging umbilical hernia with omental contents. Defect measured roughly 4 cm Findings: [] Patient was brought to the operating room, placed on operative table supine position, after an adequate level of MAC anesthesia was induced, the patient's abdomen which was moderately corpulent was prepped and draped in usual sterile fashion using an infraumbilical curvilinear incision, this carried down through skin, subcu tissue, were large hernia sac was identified and circumferentially dissected down the fascia. Sac was opened and circumferentially amputated along with its omental incarcerated contents. Specimen sent to pathology. Fascia margins were cleared. Hernia sites as noted above. Inappropriately sized Bard mesh was placed in this defect, and the superficial layer of the mesh was circumferentially sutured to the surrounding fascia using interrupted 0 Ethibond suture. At completion of procedure, mesh was in good position with no tension or gaps. Wound was irrigated, secured hemostasis, and closed in the following manner; posterior aspect of the umbilicus was tacked to the wound floor using interrupted 3-0 Vicryl sutures. Skin was closed using interrupted inverted dermal 3-0 Vicryl sutures followed by Steri-Strips and sterile dressings. Wound was infiltrated at the beginning at the end of the case with 0.5% Marcaine/1% lidocaine. Sponge, needle, and instrument counts reported correct. Patient tolerated the procedure well and emerged from anesthesia stable condition. EBL minimal
[2025-01-16 13:57] VITALS: O2SAT 89
[2025-01-16 14:02] VITALS: BP 104/61; PULSE 66; RESP 19; O2SAT 97
[2025-01-16 14:17] VITALS: BP 110/74; PULSE 78; RESP 18; O2SAT 96
[2025-01-16 14:23] VITALS: TEMP 36.2
== END 2025-01-16 14:45 | disposition home or self-care (01) ==
PROVIDERS: Nurse Practitioner; PCP Nurse Practitioner Primary Care; Visit Provider Surgery
PROC: (CPT 49594; principal; 2025-01-16 13:00)
DX: K42.0 Umbilical hernia with obstruction, without gangrene (principal); E65 Localized adiposity; I25.10 Atherosclerotic heart disease of native coronary artery without angina pectoris; I25.5 Ischemic cardiomyopathy; I25.2 Old myocardial infarction; Z95.5 Presence of coronary angioplasty implant and graft; E78.5 Hyperlipidemia, unspecified; E11.9 Type 2 diabetes mellitus without complications; E66.9 Obesity, unspecified; Z68.38 Body mass index [BMI] 38.0-38.9, adult; Z79.01 Long term (current) use of anticoagulants; Z79.82 Long term (current) use of aspirin; Z79.84 Long term (current) use of oral hypoglycemic drugs; Z79.899 Other long term (current) drug therapy; Z98.890 Other specified postprocedural states
CPT/HCPCS: 49594; 36415; 80048; 82947; 85027; 88302; C1781; J0690; J1100; J1885; J2003; J2250; J2405; J2704; J3010

== ENCOUNTER → 2025-01-16 10:17 | Outpatient (BNV) | payer OTHER, SELFPAY | PROVIDERS: PCP Nurse Practitioner Primary Care; Visit Provider Surgery | DX: K42.0 Umbilical hernia with obstruction, without gangrene (principal) | CPT/HCPCS: 49594 ==

== ENCOUNTER 2025-01-27 11:28 | Outpatient (AMB) | payer OTHER, SELFPAY ==
--- NOTE | 2025-01-27 11:30 | A.OFFVIS_ITS ---
Vital Signs 01/27/25 11:34 Weight 231 lb BP 109/61 Blood Pressure Location Rt brachial Position Sitting Pulse 79 Intake Visit Reasons: S/P incarcerated umbilical hernia Intake Note: Patient here s/p repair of incarcerated umbilical hernia with Bard mesh. Reports incision healing well. Patient c/o: taking rx pain meds as needed. Surgery: 01-16-2025 Maid Supervisor Required: No Accompanied by: Self / Same As Patient Allergies No Known Allergies Allergy (Verified 01/27/25 11:34) HPI Comments Details: Patient presents for follow-up status post umbilical hernia surgery. He is doing well. He is tolerating his diet. He is having regular bowel habits. He is increasing his activity level. He has no wound issues or complaints. He has returned to work light duty. [facility] Medical History (Updated 01/08/25 @ 10:17 by Belen Parikh RN) Back pain Prediabetes On anticoagulant therapy Obesity Umbilical hernia Shoulder pain, right Paresthesia of both feet Ischemic cardiomyopathy Diabetes Myocardial infarction Surgical History (Updated 01/27/25 @ 13:54 by Moreno Montalvo MD) H/O colonoscopy History of coronary artery stent placement History of cardiac cath Family History Mother No problems noted. Father No problems noted. Social History Are you a primary resident care spec to a significant other at home: No Do you presently have visiting nurse or other home services: No Alcohol intake: never Patient Tobacco Use Status: Never used Tobacco Physical Exam Vital Signs: Last Vital Signs Pulse 79 01/27/25 11:34 BP 109/61 01/27/25 11:34 GI Other: Abdomen is soft, incision clean dry and intact healing well Assessment & Plan Assessment & Plan (1) Status post umbilical hernia repair, follow-up exam: Code(s): Z09 - Encounter for follow-up examination after completed treatment for conditions other than malignant neoplasm Category: Medical Plan Patient was been given local instructions including avoiding strenuous activities next few weeks time and will otherwise follow-up p.r.n.. All questions answered Coding Level of Care Code Global (15960) Diagnoses Status post umbilical hernia repair, follow-up exam Z09
[2025-01-27 11:34] VITALS: BP 109/61; PULSE 79
== END 2025-01-27 11:50 | disposition home or self-care (01) ==
LOC: HO.HGS 11:28
PROVIDERS: PCP Nurse Practitioner Primary Care; Visit Provider Surgery
DX: K42.0 Umbilical hernia with obstruction, without gangrene (principal); Z09 Encounter for follow-up examination after completed treatment for conditions other than malignant neoplasm
CPT/HCPCS: 99212

== ENCOUNTER → 2025-01-27 11:28 | Outpatient (BNVA) | payer OTHER, SELFPAY | PROVIDERS: PCP Nurse Practitioner Primary Care; Visit Provider Surgery | DX: Z09 Encounter for follow-up examination after completed treatment for conditions other than malignant neoplasm (principal); Z87.19 Personal history of other diseases of the digestive system; Z98.890 Other specified postprocedural states | CPT/HCPCS: 99212 ==

== ENCOUNTER 2025-05-12 17:40 | Outpatient (REF) | payer OTHER, SELFPAY ==
--- OUTSIDE RECORDS SUMMARY | 2025-05-13 12:25 | XMS_ITS | Encounter Summary ---
Author Organization [employer] Address [address] [facility] 7[address] [place] [address] Care Team Providers Care Electrical Power Station Technician Name Role Phone Lucille Boss Primary Care Provider [phone] Myra, Angelika Unavailable Reason for Visit * Reason Onset Date Comments Results 12/11/2022 Encounter Details Date Type Department Care Team ([facility] Contact Info) Description 12/11/2022 Telephone [facility] MEDICINE [address] [place] [address] Lucille Boss ANP [address] [place] [address] Results Social History Tobacco Use Types Packs/Day [...] of right shoulder. Please contact pt at [phone] documented in this encounter Plan of Treatment Upcoming Encounters Date Type Department Care Team (Late st Contact Info) Description 05/21/2025 2:00 PM EDT Office Visit [facility]INE [address] [place] [phone] Lucille Boss ANP [address] [place] [address] documented as of this encounter Visit Diagnoses Not on filedocumented in this encounter Care Teams Electrical Power Station Technician Relationship Specialty Start Date End Date Lucille Boss ANP [address] [place] [id number] PCP - General Family Medicine 11/27/22 Angelika Renteria [address] [place] [address] 3rd [place] [address] Cardiology 10/07/24 ao Gastroenterology 09/29/24 10/06/24 documented as of this encounter
--- OUTSIDE RECORDS SUMMARY | 2025-05-13 12:25 | XMS_ITS | Clinical Summary ---
Author Organization [facility] Address [address] [place] [address] [place] [phone] Phone Care Team Providers Care Gas Plant Repairer Name Role Phone Polo Perera MD Primary Care Provide r Social History Tobacco Use Types Packs/Day Years Used Date Smoking Tobacco: Never Assessed Education Answer Date Recorded Are you interested in more education? Not on christos e 03/07/2023 Are you concerned about learning? Not on file 03/07/2023 No 03/07/2023 No 03/07/2023 Digital Access Answer Date Recorded No 03/07/2023 No 03/07/2023 No 03/07/2023 Reliable internet access at home? Not on file 03/07/2023 Device with a working camera? Not on file Sex and Gender Information Value Date Recorded Sex Assigned at Not on file Legal Sex Male 3:37 PM EDT Gender Identity Not on file Sexual Orientation Not on file Plan of Treatment Not on file Medical Devices Not on file Insurance 1 [place] [address] [facility] PLANS CONNECTORCARE DIRECT CONNECTORCARE DIRECT CONNECTORCARE DIRECT CONNECTORCARE DIRECT ORCARE DIRECT Care Teams Gas Plant Repairer Relationship Specialty Start Date End Date Polo Perera MD [address] [place] [address] [address] [place] [phone] [email or web address] PCP - General Internal Medicine 03/07/23 Additional Source Comments The information contained in this document represents components of the legal health record. It is not the complete legal health record.[facility]
[2025-05-21 12:38] LABS: Varicella Zoster Source FOREHEAD
== END 2025-05-12 17:41 | disposition home or self-care (01) ==
LOC: HO.LNP 17:40
PROVIDERS: Visit Provider Family Medicine
DX: Z13.89 Encounter for screening for other disorder (principal)
CPT/HCPCS: 87254

== ENCOUNTER 2025-08-28 14:57 | Outpatient (AMB) | payer OTHER, SELFPAY ==
--- NOTE | 2025-08-28 15:26 | MHC.OFFVIS ---
Vital Signs 08/28/25 15:27 Height 5 ft 8 in Weight 224 lb BMI 34.1 BP 106/62 Blood Pressure Location Rt brachial Position Sitting Pulse 87 Intake Visit Reasons: Colonoscopy Screening Intake Note: New patient in office today for colonoscopy screening. CC: Pt denies having any GI symptoms or concerns. Accompanied by: Self / Same As Patient Allergies No Known Allergies Allergy (Verified 08/28/25 15:27) HPI HPI Colonoscopy Screening: Details: 59-year-old male here for preprocedural meeting to discuss a screening colonoscopy. He is referred by [facility]. PMX Obesity -BMI 35 Cardiomyopathy ischemic History of STEMI Coronary artery disease High cholesterol Diabetes Umbilical hernia repaired HERPES ZOSTER * SURGICAL HISTORY Coronary artery stent Umbilical hernia repair * ALLERGIES: NKDA * [place] LABS: Needs chem panel TODAY'S VISIT Setswana #[id number] Prior colon[place]: 4 [place] [facility] [place] results lost to computer conversion and he says he had polyps. Bowel or upper GI problems: No Cardiac or respiratory problems: Cardiomyopathy, no respiratory Anesthesia or sedation problems: No Infectious disease problems: No Family history: No but he had polyps [facility] Medical History (Updated 08/28/25 @ 16:51 by HANK Shearer) Preop cardiovascular exam Back pain Prediabetes On anticoagulant therapy Obesity Umbilical hernia Shoulder pain, right Paresthesia of both feet Ischemic cardiomyopathy Diabetes Myocardial infarction Surgical History (Updated 08/28/25 @ 15:31 by HANK Shearer) History of cardiac cath Stented coronary artery Incarcerated umbilical hernia Status post umbilical hernia repair, follow-up exam H/O colonoscopy History of coronary artery stent placement Family History Mother No problems noted. Father No problems noted. Social History Are you a primary rn palliative care to a significant other at home: No Do you presently have visiting nurse or other home services: No Alcohol intake: never Patient Tobacco Use Status: Never used Tobacco Review of Systems Const Denies fatigue, Denies fever(s), Denies night sweats, Denies poor appetite and Denies weight loss ENT Reports Normal hearing present, Denies dysphagia, Denies odynophagia, Denies throat swelling and Denies tongue swelling Card Reports no additional complaints Resp Reports no additional complaints GI Details: Denies abdominal pain, Denies melena, Denies bloating, Denies hematochezia, Denies constipation, Denies GI cramping, Denies dysphagia, Denies excessive flatus, Denies early satiety, Denies heartburn, Denies diarrhea, Denies nausea, Denies odynophagia, Denies vomiting and Denies hematemesis Skin/Breast Denies pruritus, Denies lesions, Denies rash and Denies jaundice Neuro Reports Normal hearing present and Denies Abnormal speech present Endo Denies fatigue Aller/Immun Denies throat swelling and Denies tongue swelling Physical Exam Vital Signs: Last Vital Signs Pulse 87 08/28/25 15:27 BP 106/62 08/28/25 15:27 BMI result Body Mass Index 34.1 Const General: cooperative, no acute distress, well developed and well groomed Nutritional Appearance: well nourished and obese Orientation/consciousness: oriented to person, oriented to place and oriented to time Limitations: language barrier HEENT Head: Yes normocephalic and Yes atraumatic Eyes General: appearance normal, both eyes and all related structures Pupils: Equal, round and reactive pupils present Neck Neck: Yes normal visual inspection and Yes no lymphadenopathy Thyroid: Thyroid normal Resp Effort & Inspection: normal respiratory effort and able to speak in complete sentences Auscultation: clear to auscultation bilaterally Cardio Rate: regular rate Rhythm: regular rhythm Heart sounds: Normal, physiologic split S2 sound present Peripheral pulses: radial pulses present and posterior tibial pulses present GI Inspection: No distended, No Abdominal panniculus present and Yes obesity Palpation (GI): Soft to palpation, nontender, no guarding, not rigid and Hepatosplenomegaly present Percussion: Yes normal to percussion Auscultation: normal bowel sounds Rectal Exam - Male: Yes deferred Skin General skin exam: no rashes or lesions noted, turgor normal, skin not dry, no jaundice, No spider nevi and no striae Rashes: no rashes Nails: normal Neuro General: oriented to person, oriented to place and oriented to time Cranial nerves: Yes Equal, round and reactive pupils present and Yes Normal hearing present Speech: No Abnormal speech present Extrem General: Yes normal to inspection, No clubbing, No cyanosis and No edema Psych Appearance: grossly normal and well kempt Mental Status: mental status grossly normal Speech and movement: Normal speech and movement present Affect: normal affect Attitude: cooperative Thought process: Normal thought process present and not confabulating Thought content: Normal thought content present Insight: Good insight present (Psych) Judgement: Good judgement present (Psych) Assessment & Plan Assessment & Plan (1) Pre-op examination: Code(s): Z01.818 - Encounter for other preprocedural examination Category: Medical (2) Tubular adenoma of colon: Code(s): D12.6 - Benign neoplasm of colon, unspecified Category: Medical Plan Setswana #[id number] Prior colonoscopy: 4 [place] ago [place] [facility] [place] results lost to computer conversion and he says he had polyps. Bowel or upper GI problems: No Cardiac or respiratory problems: Cardiomyopathy, no respiratory Anesthesia or sedation problems: No Infectious disease problems: No Family history: No but he had polyps Orders: Orders Comprehensive Met. Panel Today Z01.818 - Encounter for other preprocedural examination Referrals GI Procedure Notification Z01.818 - Encounter for other preprocedural examination Medications: New peg 3350-electrolytes 236-22.74-6.74 -5.86 gram (Golytely) until fecal effluent is clear; do not exceed a total volume of 2,000 mL 240 mL PO Q10M 4,000 mL 0RF 1 day Z12.11 - Encounter for screening for malignant neoplasm of colon bisacodyl (Dulcolax (bisacodyl)) 10 mg (2 x 5 mg) PO BEDTIME 4 tabs 0RF 2 days Coding Level of Care Code New Pt Level 3 (72051) Diagnoses Pre-op examination Z01.818 Tubular adenoma of colon D12.6
[2025-08-28 15:27] VITALS: BP 106/62; PULSE 87; BMI 34.1
--- OUTSIDE RECORDS SUMMARY | 2025-08-28 22:59 | XMS_ITS | Encounter Summary ---
Author Organization [employer] Address [address] [facility] [address] [place] [address] Care Team Providers Care Shank Threader Name Role Phone Lucille Boss Primary Care Provider [phone] Sae Renterian Unavailable Reason for Visit * Reason Onset Date Comments Nurse Triage 06/07/2023 Encounter Details Date Type Department Care Team ([facility] st Contact Info) Description 06/07/2023 Telephone [facility] MEDICINE [address] [place], [place] [phone] Lucille Boss ANP [address] [place] [address] Nurse Triage Social History Tobacco Use Types [...] Sex Male 10:15 AM EDT Gender Identity Male 05/21/2025 1:49 PM EDT Sexual Orientation Straight 05/21/2025 1: 49 PM EDT documented as of this encounter Miscellaneous Notes * Telephone Encounter - Luisa Frausto RN - 06/07/2023 4:11 PM EDT Triage call with [employer] Referee ID [id number] Pt has been seen in office 05/16/23 [...] assistive device. Advised Pt to come to [facility] tomorrow morning to be seen by [...] The caller accepted this outcome Patient speaks turkmen documented in this encounter Plan of Treatment Upcoming Encounters Date Type Department Care Team (Late st Contact Info) Description 09/16/2025 2:30 PM EST Office Visit [facility] OPTOMETRY [address] [place] [address] Arlene Platt OD [address] [place] [address] documented as of this encounter Visit Diagnoses Not on filedocumented in this encounter Care Teams Shank Threader Relationship Specialty Start Date End Date Lucille Boss ANP [address] [place] [address] PCP - General Family Medicine 11/27/[address]rd [place] [address] Cardiology 10/07/24 [facility] Gastroenterology 09/29/24 10/06/24 documented as of this encounter
--- OUTSIDE RECORDS SUMMARY | 2025-08-28 22:59 | XMS_ITS | Encounter Summary ---
Author Organization [employer] Address [address] [facility] 7t [place] [address] Care Team Providers Care Taxi Dancer Name Role Phone Lucille Boss Primary Care Provider [phone] Myra, Angelika Unavailable Reason for Visit * Reason Onset Date Comments Hospital Follow-up 03/06/2023 Encounter Details Date Type Department Care Team ([facility] Contact Info) Description 03/06/2023 Telephone [facility] MED[facility] [address] [place], [place] [phone] Lucille Boss ANP 230 [place] [address] Hospital Follow-up Social History Tobacco Use Types [...] Orientation Straight 05/21/2025 1: 49 PM EDT COVID-19 Exposure Response Date Recorded In the last 10 days, have yo u been in contact with someone who was confirmed or suspected to have Coronavirus/COVID-19? No / Unsure 03/09/2023 9:03 AM EDT documented as of this encounter Miscellaneous Notes * Telephone Encounter - Viridiana Gregg LPN - 03/14/2023 3:12 PM EDT Called back with spouse who spks south african. Patient is out continuously waiting to see the Welder Railcar Mechanic scheduled for 04/18/23, patient has been out of work since 03/02/23 per spouse. FMLA to be processedand to provider. * Telephone Encounter - Viridiana Gregg LPN - 03/14/2023 2:51 PM EDT Spk w/patient but only a littel south african, patient will call us back with someone who can speak south african to fill out paperwork for [place] PF[place]. Pending call back. * Telephone Encounter - Terese Calhoun - 03/06/2023 9:12 AM EDT Tc from pt requesting a HDF appt. Pt was admitted at [facility] on 03/03/23 and discharged on 03/05/23 due to chest pain. Dx with a clogged artery. Patient speaks khmer and denies any symptoms at this time. documented in this encounter Plan of Treatment Upcoming Encounters Date Type Department Care Team (Late st Contact Info) Description 09/16/2025 2:30 PM EST Office Visit [facility] [address] [place] [address] Arlene Platt OD [address] [place] [address] documented as of this encounter Visit Diagnoses Not on filedocumented in this encounter Care Teams Taxi Dancer Relationship Specialty Start Date End Date Lucille Boss ANP [address] [place] [address] PCP - General Family Medicine 11/27/22 Angelika Renteria [address] 3rd [place] [address] Cardiology 10/07/24 [facility] Gastroenterology 09/29/24 10/06/24 documented as of this encounter
--- OUTSIDE RECORDS SUMMARY | 2025-08-28 22:59 | XMS_ITS | Encounter Summary ---
Author Organization [employer] Address [address] [facility] 7t [place] [address] Care Team Providers Care Jewelry Cutter Name Role Phone Lucille Boss Primary Care Provider [phone] Sae Renterian Unavailable Reason for Visit * Reason Onset Date Comments Results 12/11/2022 Encounter Details Date Type Department Care Team ([facility] st Contact Info) Description 12/11/2022 Telephone [facility] MEDICINE 230 [place], [place] [phone] Lucille Boss ANP 230 [place] [address] Results Social History Tobacco Use Types Packs/Day [...] of right shoulder. Please contact pt at [phone] documented in this encounter Plan of Treatment Upcoming Encounters Date Type Department Care Team (Late st Contact Info) Description 09/16/2025 2:30 PM EST Office Visit [facility] OPT[facility] [address] [place], [place] [phone] Arlene Platt, OD 267 [place] [address] documented as of this encounter Visit Diagnoses Not on filedocumented in this encounter Care Teams Jewelry Cutter Relationship Specialty Start Date End Date Lucille Boss ANP [address] [place] [address] PCP - General Family Medicine 11/27/22 Angelika Renteria [address] 3rd [place] [address] Cardiology 10/07/24 ao Gastroenterology 09/29/24 10/06/24 documented as of this encounter
--- OUTSIDE RECORDS SUMMARY | 2025-08-28 23:00 | XMS_ITS | Encounter Summary ---
Author Organization [employer] Address [address] [facility] [address] 7t [place] [address] Care Team Providers Care Design Drafter Name Role Phone Lucille Boss Primary Care Provider [phone] Angelika Renteria Unavailable Reason for Visit * Reason Comments Med Refill Encounter Details Date Type Department Care Team (Late Contact Info) Description 07/01/2023 Refill [facility] 230 [place] [address] Taryn Gleason MD 230 [place] [address] Social History Tobacco Use Types Packs/Day Years [...] PM EDT documented as of this encounter Plan of Treatment Upcoming Encounters Date Type Department Care Team (Late Contact Info) Description 09/16/2025 2:30 PM EST Office Visit [facility] OPTOMETRY [address] [place] [address] TarArlene bird, OD [address] [place] [address] documented as of this encounter Visit Diagnoses Not on filedocumented in this encounter Care Teams Design Drafter Relationship Specialty Start Date End Date Lucille Boss ANP 230 [place] [address] PCP - General Family Medicine 11/27/22 Angelika Renteria [address] [place] [address] 3rd [place] [address] Cardiology 10/07/24 ao Gastroenterology 09/29/24 10/06/24 documented as of this encounter
--- OUTSIDE RECORDS SUMMARY | 2025-08-28 23:01 | XMS_ITS | Encounter Summary ---
Author Organization [employer] Address [address] [facility] 7t [place] [address] Care Team Providers Care Vice President Of Instruction Name Role Phone Lucille Boss Primary Care Provider [phone] Angelika Renteria Unavailable Reason for Visit * Reason Comments Med Refill Encounter Details Date Type Department Care Team (Late Contact Info) Description 07/08/2023 Refill [facility] MEDICINE 230 [place] [address] Taryn Gleason MD 230 [place] [address] Social History Tobacco Use Types Packs/Day Years [...] Description 09/16/2025 2:30 PM EST Office Visit [facility] OPTOMETRY [address] [place] [address] Arlene Platt, OD 267 [place] [address] documented as of this encounter Visit Diagnoses Not on filedocumented in this encounter Care Teams Vice President Of Instruction Relationship Specialty Start Date End Date Lucille Boss ANP 230 [place] [address] PCP - General Family Medicine 11/27/22 Angelika Renteria [address] [place] [address] 3rd [place] [address] Cardiology 10/07/24 ao Gastroenterology 09/29/24 10/06/24 documented as of this encounter
--- OUTSIDE RECORDS SUMMARY | 2025-08-28 23:01 | XMS_ITS | Encounter Summary ---
Author Organization [employer] Address [address] [facility] [address] 7t [place] [address] Care Team Providers Care Back End Web Developer Name Role Phone Lucille Boss MIN Primary Care Provider [phone] Angelika Renteria Unavailable Reason for Visit * Reason Onset Date Comments prophy appt 07/30/2023 Encounter Details Date Type Department Care Team ([facility] Contact Info) Description 07/30/2023 Telephone [facility] 230 [place], [place] [phone] MissaelLouisSabina 230 [place] [address] prophy appt Social History Tobacco Use Types [...] Description 09/16/2025 2:30 PM EST Office Visit [facility] OPTOMETRY [address] [place] [address] Arlene Platt, OD [address] [place] [address] documented as of this encounter Visit Diagnoses Not on filedocumented in this encounter Care Teams Back End Web Developer Relationship Specialty Start Date End Date Lucille Boss ANP 230 [place] [address] PCP - General Family Medicine 11/27/22 Angelika Renteria [address] [place] [address] 3rd [place] [address] Cardiology 10/07/24 ao Gastroenterology 09/29/24 10/06/24 documented as of this encounter
--- OUTSIDE RECORDS SUMMARY | 2025-08-28 23:02 | XMS_ITS | Clinical Summary ---
Author Organization [employer] Address [address] [facility] 7t [place] [address] Care Team Providers Care Design Engineering Intern Name Role Phone Lucille Boss MIN Primary Care Provider [phone] Angelika Renteria Unavailable Allergies No known active allergies Medications nitroglycerin (Nitrostat) 0.[address] 1 TABLET UNDER TONGUE EVERY 5 MIN NEEDED FOR CHEST PAIN, MAX OF 3 DOSES/15 MIN CALL 911/SEEK MEDICAL ATTENTION IF PAIN PERSISTS 90 tablet 03/09/20 23 Active Acetaminophen Extra Strength 500 MG tabletIndications :Numbness of both lower extremities TAKE 2 TABLETS (1,000 MG) BY MOUTH IF NEEDED IN THE MORNING AND AT BEDTIME FOR MILD PAIN. 30 tablet 1 08/04/20 24 Active metroNIDAZOLE (Metrogel) 0.75 % gelIndications:Ro sacea Apply a thin film to face twice daily, morning and evening, to entire affected areas after washing. 45 g 2 11/21/19 25 Active ticagrelor (Brilinta) 90 MG tabletIndications :Coronary artery disease involving chev[place] heart without angina pectoris, unspecified vessel or lesion type TAKE 1 TABLET BY MOUTH TWICE DAILY 180 tablet 1 11/21/19 25 Active empagliflozin (Jardiance) 10 MGIndications:Typ e 2 diabetes mellitus with hyperlipidemia (HCC) Take 1 tablet (10 mg) by mouth Once per day. 90 tablet 3 11/21/19 25 026 Active metFORMIN XR (Glucophage-XR) 500 MG 24 hr tablet TAKE 1 TABLET BY MOUTH EVERY MORNING 90 tablet 1 05/06/20 25 Active capsaicin (Zostrix) 0.025 % creamIndications: Herpes zoster without complication APPLY TOPICALLY TWICE A DAY 60 g 05/12/20 25 Active carvedilol (Coreg) 3.125 MG tablet TAKE 1 TABLET BY MOUTH TWICE A DAY 180 tablet 1 06/24/20 25 Active atorvastatin (Lipitor) 80 MG tablet TAKE 1 TABLET BY MOUTH EVERY EVENING 90 tablet 1 06/24/20 25 Active lisinopril 5 MG tablet TAKE 1 TABLET BY MOUTH EVERY MORNING 90 tablet 1 06/24/20 25 Active aspirin (Aspirin Low Dose) 81 MG EC tablet TAKE 1 TABLET BY MOUTH EVERY DAY 90 tablet 1 06/24/20 25 Active traZODone (Desyrel) 50 MG tabletIndications :Insomnia, unspecified type TAKE 1 TABLET BY MOUTH AT BEDTIME NEEDED 90 tablet 08/18/20 25 Active traZODone (Desyrel) 50 MG tabletIndications :Insomnia, unspecified type Take 1 tablet (50 mg) by mouth at bedtime. As needed 30 tablet 2 05/21/20 25 025 Discontinued Active Problems Problem Noted Date Diagnosed Date Herpes zoster without complication 04/20/2025 ST elevation myocardial infa rction involving left anterior descending (LAD) coronary artery 05/04/2023 Overview (11/21/2024): With drug-eluting stent placed 03/03/2023 Follows with [facility] cardiology Class 2 obesity 04/04/2023 Type 2 diabetes mellitus with hyperlipidemia Overview (11/21/2024): Lab Results Component Value Date [...] (03/09/2023 12:02 PM EDT): Pt w recent DC - LAD 95% stenosis and 30 % stenosis of Lcx ,Had #1 DELL in LAD. -echo showed severe wall akinesis and EF 25-30% -continue current Carvedilol,Lisinopril,SL nitrog,prn,brillinta,ASA, atorvastatin to 80 mg daily. -pt has apt scheduled already w cards -per pharmacy x 03/2023 and per pt in 04/2023 --Advised pt to call mortgage processing clerk 'office to confirm date of apt -refilled [...] referral but hold x now w recent DC -alarm signs and symptoms discussed Ischemic cardiomyopathy 03/09/2023 Assessment & Plan (03/09/2023 12:06 PM EDT): Pt w recent DC - LAD 95% stenosis and 30 % [...] diet and exercise,discussed healthy life style -discussed mechanical intern referral --referred today Paresthesia of both feet [...] Encounters Date Type Department Care Team Description 08/15/[address] [facility] 230 [place] [address] Lucille Boss ANP Insomnia, unspecified type 06/24/[address] [facility] 230 [place] [address] Lucille Boss ANP 06/23/[address] [facility] [address] [place] [address] Lucille Boss ANP Nurse Triage from Last 3 Months Immunizations Immunization Administration Dates Next Due Pneumococcal Polysaccharide PPSV23 12/13/2018 Tdap 08/04/2022,12/13/2018 Social History Tobacco Use Types Packs/Day Years Used Date Smoking Tobacco: Never Passive Smoke Exposure: Never Smokeless Tobacco: Never Tobacco Cessation:Counseling Given: Not Answered Alcohol Use Standard Drinks/Week Comments Not Currently 0 (1 standard drink = 0.6 oz pur e alcohol) Depression Answer Date Recorded Patient Health Questionnaire-9 Score 0 05/21/2025 Patient Health Questionnaire-9 Score 0 05/21/2025 Last PHQ-9: Questionnaire Data Not on file 0 05/21/2025 Housing Stability Answer Date Recorded What is [...] Date Recorded Patient Health Questionnaire-2 Score 0 05/21/2025 Internet Access Answer Date Recorded Internet Access Q1 Yes 07/02/2024 Internet Access Q2 Not on file 07/02/2024 Sex and Gender Information Value Date Recorded Sex Assigned at Male 08/14/2022 10:15 AM EDT Legal Sex Male 10:15 AM EDT Gender Identity Male 05/21/2025 1:49 PM EDT Sexual Orientation Straight 05/21/2025 1: 49 PM EDT Last Filed Vital Signs Vital Sign Reading Time Taken Comments Blood Pressure 120/70 05/21/2025 2:03 PM EDT Pulse 95 05/21/2025 2:03 PM EDT Temperature 36.8 C (98.2 F) 05/12/2025 5:17 PM EDT Respiratory Rate 16 05/21/2025 2:03 PM EDT Oxygen Saturation 97% 04/20/2025 5:45 PM EDT Inhaled Oxygen Concentration - - Weight 104 kg (230 lb) 05/21/2025 2:03 PM EDT Height 172.7 cm (5' 8 ) 05/21/2025 2:03 PM EDT Body Mass Index 34.97 05/21/2025 2:03 PM EDT Plan of Treatment Upcoming Encounters Date Type Department Care Team (Late st Contact Info) Description 09/16/2025 2:30 PM EST Office Visit [facility] OPT[facility] [address] [place] [address] Arlene Platt, OD [address] [place] [address] Health Maintenance Due Date Last Done Comments CT Colonography 1965 Colonoscopy 1965 Colorectal Cancer Screening 1965 Dental Oral Exam 1965 Dental Prophylaxis 1965 Dental X-Ray: Bitewings 1965 Dental X-Ray: Full Mouth 1965 FIT DNA/Cologuard 1965 FIT 1965 FOBT 1965 Sigmoidoscopy 1965 Eye Exam 1975 Hepatitis B Vaccines (1 of 3 - 19+ 3-dose series) 1984 RSV Patients and Patients Aged 60 years or older (1 - Risk 50-74 years 1-dose series) 2015 Zoster Vaccines (1 of 2) 2015 Pneumococcal Vaccine: 50+ Years (2 of 2 - PCV) 12/14/2019 12/13/2018 Diabetes: Urine Protein Screening 04/26/2025 04/26/2024, 08/04/2022 Lipid Panel 04/26/2025 04/26/2024, 07/2 01/2023, 08/04/2022 COVID-19 Vaccine ( - season) 2025 Influenza Vaccine (#1) 2025 Diabetes: Foot Exam 07/09/2025 07/09/2024 Diabetes: Hemoglobin A1C 08/21/2025 025, 11/21/2024, 03/06/2024, Additional history exists SDOH Screening 11/10/2025 11/10/2024 Alcohol/Substance Use Screening 11/21/2025 11/21/2024 Depression Screening 05/21/2026 05/21/2025, 05/21/20 Disability Screening 05/21/2026 05/21/2025 Tobacco Screening 05/21/2026 05/21/2025 DTaP/Tdap/Td Vaccines (3 - Td or Tdap) 08/04/2032 08/04/2022, 12/13/2018 HIV Screening Completed 08/04/2022 Hepatitis C Screening [...] patient's age to complete this topic Meningococcal B Vaccine Aged Out No l onger eligible based on patient's age to complete [...] Diagnosis Comments POCT GLYCATED HEMOGLOBIN, TOTAL Routine 05/21/2025 2:06 PM EDT Type 2 diabetes mellitus with hyperlipidemia (CMS/HCC) [...] Maintenance Results * (ABNORMAL) POCT HGB A1C (05/21/2025 2:06 PM EDT) Hemoglobin A1C 6.4(A) 4.0 - 5.7 % QC Media Lot # [id number] Lot# Expiration Date Blood 05/21/2025 2:06 PM EDT us Lucille COPELAND POINT OF CARE TEST ENTER/EDIT OR DERABLES Final Result * (ABNORMAL) Lipid Panel, Standard (04/26/2024 10:01 AM EDT) Triglycerides 42 <150 mg/dL [facility] Comment:Desirable Triglyceri de: less than 150 mg/dLBorderline High Triglyceride 150-199 mg/dLHigh Triglyceride: 200-499 mg/dLVery High Triglyceride: greater than or equal to 5OO mg/dL Cholesterol 98 <200 mg/dL [facility] Comment:Desirable Cholestero l: less than 200 mg/dLBorderline High Cholesterol: 200-239 mg/dLHigh Cholesterol: greater than 239 mg/dL LDL Cholesterol Calculated 56 <100 mg/dL [facility] Comment:Desirable LDL: less than 100 mg/dLNear Optimal/Above Optimal LDL: 110- 129 mg/dLBorderline High LDL: 130-159 mg/dLHigh LDL: 160-189 mg/dLVery High LDL: greater than or equal to 190 mg/dL HDL Cholesterol 34(L) >40 mg/dL [facility] Comment:Desirable HDL: great er than 40 mg/dL Note: This HDL assay may give artificially low results in patients with liver disease. Blood Venous blood specimen / Unknown 04/26/2024 10:01 AM EDT 04/26/2024 10:01 AM EDT Kingsley Luong MD LAB BLOOD ORDERABLES Final Resul t [facility] [address] [place] [phone] * Albumin, Random Urine W/Creatinine (04/26/2024 10:00 AM EDT) Creatinine, Urine 110.97 mg/dL [facility] Microalbumin Urine <5.0 mg/L [facility] Microalbum Creatinine Ratio Ur TNP <30 ug/mg cr [facility] Comment:Unable to calculate albumin/creatinine ratio due to lowmicroalbumin or creatinine result. Urine (Urine, Random) 04/26/2024 10:00 AM EDT 04/26/2024 11:51 AM EDT Kingsley Luong MD LAB URINE ORDERABLES Final Resul t Performing Organization Address City/[facility] Co de Phone Number [facility] [address] [place] [address] [phone] * HEPATITIS C AB W/REFL TO HCV RNA, QN, PCR (08/04/2022 4:18 PM EDT) HEPATITIS C ANTIBODY NON-REACTI VE NON-REACT NATALIE [facility] INDEX 0.05 <1.00 [facility] Comment: HCV antibody was non-reactive. There is no laboratory evidence of HCV infection. In most cases, no further action is required. However, if recent HCV exposure is suspected, a test for HCV RNA (test code 19698) is suggested. For additional information please refer to http://education.Znode/faq/VXT89i1 (This link is being provided for informational/ educational purposes only.) 08/04/2022 4:18 PM EDT us Lucille Gera ANP HISTORICAL/NON ORDERABLE LABS Fi nal Result Performing Organization Address [facility]/ZIP Co de Phone Number CONVERTED LEGACY LABS * HIV 1/2 ANTIGEN/ANTIBODY,FOURTH GENERATION W/RFL (08/04/2022 4:18 PM EDT) HIV-1/2 ANTIGEN AND ANTIBODIES, 4TH GENERATION W/ REFLEX NON-REACT NATALIE NON-REACT NATALIE [facility] Comment: HIV-1 antigen and HIV-1/HIV-2 antibodies were not detected. There is no laboratory evidence of HIV infection. PLEASE NOTE: This information has been disclosed to you from records whose confidentiality may be protected by state law. If your state requires such protection, then the state law prohibits you from making any further disclosure of the information without the specific written consent of the person to whom it pertains, or as otherwise permitted by law. A general authorization for the release of medical or other information is NOT sufficient for this purpose. For additional information please refer to http://[employer].Znode/faq/CSA422 (This link is being provided for informational/ educational purposes only.) The performance of this assay has not been clinically validated in patients less than 2 years old. 08/04/2022 4:18 PM EDT [facility] LAB BLOOD ORDERABLES Final Resul t CONVERTED LEGACY LABS from Last 3 Months or Most Recently Relevant to Health Maintenance Insurance [facility] D[facility]AL - HSN PARTIAL (MEDICAID) [facility] Care Teams Design Engineering Intern Relationship Specialty Start Date End Date Lucille Boss ANP [address] [place] [address] PCP - General Family Medicine 11/27/22 Angelika Renteria [address] [place] [address] 3rd [place] [address] Cardiology 10/07/24
--- OUTSIDE RECORDS SUMMARY | 2025-08-28 23:02 | XMS_ITS | Encounter Summary ---
Author Organization [employer] Address [address] [facility] 7t [place] [address] Care Team Providers Care Work Measurement Engineer Name Role Phone Lucille Boss MIN Primary Care Provider [phone] Angelika Renteria Unavailable Reason for Visit * Reason Comments Med Refill Encounter Details Date Type Department Care Team ([facility] st Contact Info) Description 09/10/2023 Refill [facility] MEDICINE [address] [place] [address] Marie Doan MD 230 [place] [address] Social History Tobacco Use Types Packs/Day Years [...] Description 09/16/2025 2:30 PM EST Office Visit [facility] OPTOMETRY [address] [place] [address] Arlene Platt, OD [address] [place] [address] documented as of this encounter Visit Diagnoses Not on filedocumented in this encounter Care Teams Work Measurement Engineer Relationship Specialty Start Date End Date Lucille Boss ANP [address] [place] [address] PCP - General Family Medicine 11/27/22 Angelika Renteria [address] [facility] [address] 3rd [place] [address] Cardiology 10/07/24 ao Gastroenterology 09/29/24 10/06/24 documented as of this encounter
--- OUTSIDE RECORDS SUMMARY | 2025-08-28 23:03 | XMS_ITS | Clinical Summary ---
Author Organization [facility] Address [address] [place] [address] [place] [phone] Phone Care Team Providers Care Hog Dropper Name Role Phone Polo Perera MD Primary [...] Medical Devices Not on file Insurance 1 [place] [address] [facility] CONNECTORCARE DIRECT CONNECTORCARE DIRECT CONNECTORCARE DIRECT CONNECTORCARE DIRECT ORCARE DIRECT Care Teams Hog Dropper Relationship Specialty Start Date End Date Polo Perera MD [address] [place] [address] [address] [place] [phone] [email or web address] PCP - General Internal Medicine 03/07/23 Additional Source Comments The information contained in this document represents components of the legal health record. It is not the complete legal health record.[facility]
--- OUTSIDE RECORDS SUMMARY | 2025-08-28 23:03 | XMS_ITS | Encounter Summary ---
Author Organization [employer] Address [address] [facility] [address] 7t [place] [address] Care Team Providers Care Residential Collections Name Role Phone Lucille Boss Primary Care Provider [phone] Angelika Renteria Unavailable Reason for Visit * Reason Comments Med Refill Encounter Details Date Type Department Care Team ([facility] st Contact Info) Description 09/02/2024 Refill [facility] MED[facility] [address] [place] [address] Lucille Boss ANP 230 [place] [address] Social History Tobacco Use Types Packs/Day Years [...] Description 09/16/2025 2:30 PM EST Office Visit [facility] OPTOMETRY [address] [place] [address] Arlene Platt, OD [address] [place] [address] documented as of this encounter Visit Diagnoses Not on filedocumented in this encounter Additional Health Concerns Assessment Noted Time PHQ-9 Depression Total Score: 5 03/06/20 24 3:25 PM EDT documented as of this encounter Care Teams Residential Collections Relationship Specialty Start Date End Date Lucille Boss ANP 230 [place] [address] PCP - General Family Medicine 11/27/22 Angelika Renteria [address]rd [place] [address] Cardiology 10/07/24 [email or web address] Gastroenterology 09/29/24 10/06/24 documented as of this encounter
--- OUTSIDE RECORDS SUMMARY | 2025-08-28 23:04 | XMS_ITS | Encounter Summary ---
Author Organization [employer] Address [address] [address] [facility] [place] [address] Care Team Providers Care Last Turner Name Role Phone Lucille Boss MIN Primary Care Provider [phone] Angelika Renteria Unavailable Reason for Visit * Reason Onset Date Comments appt 08/13/2024 Encounter Details Date Type Department Care Team ([facility] Contact Info) Description 08/13/2024 Telephone [facility] ADULT D[facility]AL [address] [place] [address] Erik Garcia, FRANTZ [address] [place] [address] appt Social History Tobacco Use Types Packs/Day [...] Description 09/16/2025 2:30 PM EST Office Visit [facility] OPTOM[facility]RY [address] [place] [address] TarkaArlene, OD [address] [place] [address] documented as of this encounter Visit Diagnoses Not on filedocumented in this encounter Additional Health Concerns Assessment Noted Time PHQ-9 Depression Total Score: 5 03/06/20 24 3:25 PM EDT documented as of this encounter Care Teams Last Turner Relationship Specialty Start Date End Date Lucille Boss ANP [address] [place] [address] PCP - General Family Medicine 11/27/22 Angelika Renteria [address] [place] [address] Cardiology 10/07/24 [facility] Gastroenterology 09/29/24 10/06/24 documented as of this encounter
--- OUTSIDE RECORDS SUMMARY | 2025-08-28 23:04 | XMS_ITS | Encounter Summary ---
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 Name Role Phone Lucille Boss Primary Care Provider [phone] Angelika Renteria Unavailable Reason for Visit * Reason Comments Med Refill Encounter Details Date Type Department Care Team ([facility] st Contact Info) Description 09/28/2024 Refill [facility] MEDICINE [address] [place] [address] Lucille Boss ANP [address] [place] [address] Social History Tobacco Use Types Packs/Day Years [...] 09/16/2025 2:30 PM EST Office Visit [facility] OPTOMETRY [address] [place] [address] Arlene Platt, OD [address] [place] [address] documented as of this encounter Visit Diagnoses Not on filedocumented in this encounter Additional Health Concerns Assessment Noted Time PHQ-9 Depression Total Score: 5 03/06/20 24 3:25 PM EDT documented as of this encounter Care Teams Steam Conditioner Operator Relationship Specialty Start Date End Date Lucille Boss ANP [address] [place] [address] PCP - General Family Medicine 11/27/22 Angelika Renteria [address] [place] [address] Cardiology 10/07/24 [email or web address] G[facility]ology 09/29/24 10/06/24 documented as of this encounter
== END 2025-08-28 16:00 | disposition home or self-care (01) ==
LOC: HO.HGI 14:57
PROVIDERS: PCP Nurse Practitioner Primary Care; Visit Provider Nurse Practitioner
DX: Z01.818 Encounter for other preprocedural examination (principal); Z12.11 Encounter for screening for malignant neoplasm of colon; Z86.0101 Personal history of adenomatous and serrated colon polyps
CPT/HCPCS: 99203

== ENCOUNTER → 2025-08-28 14:57 | Outpatient (BNVA) | payer OTHER, SELFPAY | PROVIDERS: PCP Nurse Practitioner Primary Care; Visit Provider Nurse Practitioner | DX: Z01.818 Encounter for other preprocedural examination (principal); D12.6 Benign neoplasm of colon, unspecified | CPT/HCPCS: 99202 ==